=== PATIENT | female | born 1995 | race Caucasian/White ===

== ENCOUNTER 2018-06-30 08:30 | Inpatient (IN) | payer SELFPAY ==
[2018-06-30] MEDS ORDERED: NACL 0.9% 1000 ML 1,000 ML IV ONE (08:52)
[2018-06-30] MEDS ORDERED: MORPHINE IV ONE ×2 (08:52→12:13)
[2018-06-30] MEDS ORDERED: PEPCID IV ONE (08:52)
[2018-06-30] MEDS ORDERED: ZOFRAN IV ONE (08:52)
[2018-06-30] MEDS ORDERED: TORADOL IV ONE (08:52)
[2018-06-30 09:13] LABS: Basophils % (Auto) 0.4 % (0.0-1.8); Eosinophils # (Auto) 0.3 K/mm3 (0.0-0.4); Eosinophils % (Auto) 2.4 % (0.0-4.3); Hematocrit 34.3 % (30.3-42.9); Hemoglobin 11.7 gm/dl (10.1-14.3); Lymphocytes % (Auto) 19.5 % (13.4-35.0); Mean Corpuscular HGB Conc 34 % (30-34); Mean Corpuscular Volume 95 fl (79-97); Monocytes # (Auto) 0.9 K/mm3 (0.0-0.8); Monocytes % (Auto) 8.4 % (0.0-7.3); Platelet Count 416 K/mm3 (140-440); Red Blood Count 3.61 M/mm3 (3.65-5.03); Red Cell Distribution Width 13.3 % (13.2-15.2)
--- NOTE | 2018-06-30 09:26 | Emergency Department Report ---
ED Abdominal Pain HPI - General Chief Complaint: Abdominal Pain Stated Complaint: RT SIDE PAIN/VOMITING/FEVER Time Seen by Provider: 06/30/18 08:50 Source: patient Mode of arrival: Ambulatory Limitations: No Limitations - History of Present Illness MD Complaint: abdominal pain -: Gradual, days(s) (5) Location: RLQ Radiation: suprapubic Migration to: no migration Severity: severe Severity scale (0 -10): 8 Quality: stabbing, aching Consistency: constant Improves With: nothing Worsens With: nothing Associated Symptoms: nausea, vomiting, fever (subjective), chills, constipation, dysuria, anorexia. denies: diarrhea, hematemesis, hematochezia, melena, hematuria, syncope - Related Data Home Medications Medication Instructions Recorded Confirmed Last Taken EPINEPHrine 03/17/16 Unknown Allergies Allergy/AdvReac Type Severity Reaction Status Date / Time Fish Containing Products Allergy Anaphylaxis Verified 03/17/16 15:32 multiple Allergy Anaphylaxis Uncoded 03/17/16 15:31 oranges Allergy Anaphylaxis Uncoded 03/17/16 15:32 seafood Allergy Anaphylaxis Uncoded 03/17/16 15:31 ED Review of Systems ROS: Stated complaint: RT SIDE PAIN/VOMITING/FEVER Other details as noted in HPI Comment: All other systems reviewed and negative ED Past Medical Hx - Past Medical History Previous Medical History?: No Additional medical history: allergies - Surgical History Past Surgical History?: No - Social History Smoking Status: Never Smoker Substance Use Type: None - Medications Home Medications: Home Medications Medication Instructions Recorded Confirmed Last Taken Type EPINEPHrine 03/17/16 Unknown History ED Physical Exam - General Limitations: No Limitations General appearance: alert, in no apparent distress - Head Head exam: Present: atraumatic, normocephalic - Eye Eye exam: Present: normal appearance, PERRL, EOMI - ENT ENT exam: Present: mucous membranes moist - Neck Neck exam: Present: normal inspection - Respiratory Respiratory exam: Present: normal lung sounds bilaterally. Absent: respiratory distress, wheezes, rales, rhonchi - Cardiovascular Cardiovascular Exam: Present: regular rate, normal rhythm, normal heart sounds. Absent: systolic murmur, diastolic murmur, rubs, gallop - GI/Abdominal GI/Abdominal exam: Present: soft, tenderness (RLQ and Suprapubic), rebound, normal bowel sounds. Absent: distended, guarding, rigid - Extremities Exam Extremities exam: Present: normal inspection - Back Exam Back exam: Present: normal inspection - Neurological Exam Neurological exam: Present: alert, oriented X3 - Psychiatric Psychiatric exam: Present: normal affect, normal mood - Skin Skin exam: Present: warm, dry, intact, normal color. Absent: rash ED Course Vital Signs 06/30/18 06/30/18 06/30/18 08:35 09:11 09:18 Temperature 98.4 F Pulse Rate 110 H Respiratory 16 18 18 Rate Blood Pressure 115/70 [Left] O2 Sat by Pulse 99 Oximetry 06/30/18 06/30/18 12:32 12:33 Temperature Pulse Rate Respiratory 18 18 Rate Blood Pressure [Left] O2 Sat by Pulse 99 Oximetry - Reevaluation(s) Reevaluation #1: 06/30/18 12:53 Patient was made nothing by mouth at this time given a dose of Zosyn. Patient's pain is slightly improved. Dr. Harris has been consulted to give input from general surgery standpoint. ED Medical Decision Making - Lab Data Result diagrams: 06/30/18 09:07 06/30/18 09:07 Lab Results 06/30/18 06/30/18 06/30/18 Range/Units 09:07 09:07 09:07 WBC 10.5 (4.5-11.0) K/mm3 RBC 3.61 L (3.65-5.03) M/mm3 Hgb 11.7 (10.1-14.3) gm/dl Hct 34.3 (30.3-42.9) % MCV 95 (79-97) fl MCH 33 H (28-32) pg MCHC 34 (30-34) % RDW 13.3 (13.2-15.2) % Plt Count 416 (140-440) K/mm3 Lymph % (Auto) 19.5 (13.4-35.0) % [place] % (Auto) 8.4 H (0.0-7.3) % Eos % (Auto) 2.4 (0.0-4.3) % Baso % (Auto) 0.4 (0.0-1.8) % Lymph # 2.0 (1.2-5.4) K/mm3 [place] # 0.9 H (0.0-0.8) K/mm3 Eos # 0.3 (0.0-0.4) K/mm3 Baso # 0.0 (0.0-0.1) K/mm3 Seg Neutrophils % 69.3 (40.0-70.0) % Seg Neutrophils # 7.3 (1.8-7.7) K/mm3 Sodium 140 (137-145) mmol/L Potassium 3.7 (3.6-5.0) mmol/L Chloride 102.0 (98-107) mmol/L Carbon Dioxide 24 (22-30) mmol/L Anion Gap 18 mmol/L BUN 6 L (7-17) mg/dL Creatinine 0.6 L (0.7-1.2) mg/dL Estimated GFR > 60 ml/min BUN/Creatinine Ratio 10 % Glucose 84 (65-100) mg/dL Calcium 9.0 (8.4-10.2) mg/dL Total Bilirubin 0.30 (0.1-1.2) mg/dL AST 16 (5-40) units/L ALT 9 (7-56) units/L Alkaline Phosphatase 41 (35-129) units/L Total Protein 8.1 (6.3-8.2) g/dL Albumin 4.1 (3.9-5) g/dL Albumin/Globulin Ratio 1.0 % HCG, Qual Negative (Negative) Urine Color (Yellow) Urine Turbidity (Clear) Urine pH (5.0-7.0) Ur Specific [place] (1.003-1.030) Urine Protein (Negative) mg/dL Urine Glucose (UA) (Negative) mg/dL Urine Ketones (Negative) mg/dL Urine Blood (Negative) Urine Nitrite (Negative) Urine Bilirubin (Negative) Urine Urobilinogen (<2.0) mg/dL Ur Leukocyte Esterase (Negative) Urine WBC (Auto) (0.0-6.0) /HPF Urine RBC (Auto) (0.0-6.0) /HPF U Epithel Cells (Auto) (0-13.0) /HPF Urine Bacteria (Auto) (Negative) /HPF Urine Mucus /HPF 06/30/18 Range/Units Unknown WBC (4.5-11.0) K/mm3 RBC (3.65-5.03) M/mm3 Hgb (10.1-14.3) gm/dl Hct (30.3-42.9) % MCV (79-97) fl MCH (28-32) pg MCHC (30-34) % RDW (13.2-15.2) % Plt Count (140-440) K/mm3 Lymph % (Auto) (13.4-35.0) % [place] % (Auto) (0.0-7.3) % Eos % (Auto) (0.0-4.3) % Baso % (Auto) (0.0-1.8) % Lymph # (1.2-5.4) K/mm3 [place] # (0.0-0.8) K/mm3 Eos # (0.0-0.4) K/mm3 Baso # (0.0-0.1) K/mm3 Seg Neutrophils % (40.0-70.0) % Seg Neutrophils # (1.8-7.7) K/mm3 Sodium (137-145) mmol/L Potassium (3.6-5.0) mmol/L Chloride (98-107) mmol/L Carbon Dioxide (22-30) mmol/L Anion Gap mmol/L BUN (7-17) mg/dL Creatinine (0.7-1.2) mg/dL Estimated GFR ml/min BUN/Creatinine Ratio % Glucose (65-100) mg/dL Calcium (8.4-10.2) mg/dL Total Bilirubin (0.1-1.2) mg/dL AST (5-40) units/L ALT (7-56) units/L Alkaline Phosphatase (35-129) units/L Total Protein (6.3-8.2) g/dL Albumin (3.9-5) g/dL Albumin/Globulin Ratio % HCG, Qual (Negative) Urine Color Yellow (Yellow) Urine Turbidity Cloudy (Clear) Urine pH 5.0 (5.0-7.0) Ur Specific [place] 1.029 (1.003-1.030) Urine Protein <15 mg/dl (Negative) mg/dL Urine Glucose (UA) Neg (Negative) mg/dL Urine Ketones 20 (Negative) mg/dL Urine Blood Neg (Negative) Urine Nitrite Neg (Negative) Urine Bilirubin Neg (Negative) Urine Urobilinogen 4.0 (<2.0) mg/dL Ur Leukocyte Esterase Tr (Negative) Urine WBC (Auto) 5.0 (0.0-6.0) /HPF Urine RBC (Auto) 6.0 (0.0-6.0) /HPF U Epithel Cells (Auto) 25.0 H (0-13.0) /HPF Urine Bacteria (Auto) 1+ (Negative) /HPF Urine Mucus 2+ /HPF - Radiology Data [facility] [address] [place] [address] Cat Scan Report Signed Patient: JESSICA BUTLER MR#: [id number] : 1995 Acct:[id number] Age/Sex: 23 / F ADM Date: 06/30/18 Loc: ED Attending Dr: Ordering Physician: RENATO TO MD Date of Service: 06/30/18 Procedure(s): CT abdomen pelvis w con Accession Number(s): [id number] cc: RENATO TO MD PROCEDURE: CT ABDOMEN PELVIS W CON TECHNIQUE: CT of the abdomen and pelvis was performed. IV contrast was administered. No oral contrast was administered. Axial images and coronal and sagittal reformatted images were obtained. HISTORY: RLQ pain with rebound tenderness COMPARISON: None FINDINGS: There is a fluid containing tubular structure in the right lower quadrant/pelvis measuring up to 1.3 cm diameter. There is surrounding infiltration. This is most likely acute appendicitis. There is a large cystic mass or abscess on the left side of the lower abdomen/pelvis measuring 7.5 cm largest diameter. In addition there is a posterior right-sided pelvic cystic mass or fluid collection measuring 4.4 cm. There is a second cystic mass/fluid collection in anterior lower quadrant measuring 2.6 cm. This demonstrates abundant surrounding inflammatory change and is probably an abscess. There is some bladder wall thickening which may be reactive inflammation. There is some thickening of the distal fluid filled bowel loops, likely an ileus. There is no free intraperitoneal air. The visualized liver, spleen, pancreas, adrenal glands and kidneys demonstrate no significant abnormality. There is no abdominal aortic aneurysm. There is no evidence for intestinal obstruction. IMPRESSION: Findings, as described above, are most compatible with ruptured acute appe ndicitis. Multiple pelvic fluid collections are likely abscesses. The largest is left of midline measuring 7.5 cm. Note that the possibility exists that findings could represent hydrosalpinx and tubo- ovarian abscesses although this possibility is less likely. These findings were discussed with Dr. To on 06/30/2018 at 12:12 PM EST. This document is electronically signed by Karen Chavez MD., June 30 2018 12:18:02 PM ET Transcribed By: JEANNETTE Dictated By: KAREN CHAVEZ MD Electronically Authenticated By: KAREN CHAVEZ MD Signed Date/Time: 06/30/18 1220 DD/ 16 TD/TT: 06/30/18 1117 - Medical Decision Making Patient is a 23-year-old Female who is presenting with right lower quadrant rebound tenderness. Patient has acute appendicitis with rupture with abscess formation. Patient does have a large abscess present in is not an immediate surgical candidate at this time. Patient started on Zosyn and was made nothing by mouth. Interventional radiology will be consulted. Patient was admitted to the hospitalist service at this time. Critical Care Time: Yes (30) Critical care attestation.: If time is entered above; I have spent that time in minutes in the direct care of this critically ill patient, excluding procedure time. ED Disposition Clinical Impression: Acute appendicitis Qualifiers: Acute appendicitis type: with localized peritonitis Appendicitis gangrene presence: unspecified whether gangrene present Appendicitis perforation presence: with perforation Appendicitis abscess presence: with abscess Qualified Code(s): K35.33 - Acute appendicitis with perforation and localized peritonitis, with abscess Disposition: DC-09 OP ADMIT IP TO THIS HOSP Is pt being admited?: Yes Does the pt Need Aspirin: No Condition: Stable Time of Disposition: 13:02
[2018-06-30 09:39] LABS: Alanine Aminotransferase 9 units/L (7-56); Albumin 4.1 g/dL (3.9-5); BUN/Creatinine Ratio 10; Blood Urea Nitrogen 6 mg/dL (7-17); Hemolysis Index 5
[2018-06-30 11:23] LABS: Bacteria,Urine 1+ /HPF (Negative); Bilirubin,Urine NEG (Negative); Blood,Urine NEG (Negative); Color,Urine Yellow (Yellow); Mucus,Urine 2+ /HPF; Protein,Urine <15 mg/dL mg/dL (Negative)
--- NOTE | 2018-06-30 12:20 | Cat Scan Report ---
PROCEDURE: CT ABDOMEN PELVIS W CON TECHNIQUE: CT of the abdomen and pelvis was performed. IV contrast was administered. No oral contrast was administered. Axial images and coronal and sagittal reformatted images were obtained. HISTORY: RLQ pain with rebound tenderness COMPARISON: None FINDINGS: There is a fluid containing tubular structure in the right lower quadrant/pelvis measuring up to 1.3 cm diameter. There is surrounding infiltration. This is most likely acute appendicitis. There is a la rge cystic mass or abscess on the left side of the lower abdomen/pelvis measuring 7.5 cm largest diam eter. In addition there is a posterior right-sided pelvic cystic mass or fluid collection measuring 4 .4 cm. There is a second cystic mass/fluid collection in anterior lower quadrant measuring 2.6 cm. Th is demonstrates abundant surrounding inflammatory change and is probably an abscess. There is some bladder wall thickening which may be reactive inflammation. There is some thickening of the distal fluid filled bowel loops, likely an ileus. There is no free intraperitoneal air. The visualized liver, spleen, pancreas, adrenal glands and kidneys demonstrate no significant abnorma lity. There is no abdominal aortic aneurysm. There is no evidence for intestinal obstruction. IMPRESSION: Findings, as described above, are most compatible with ruptured acute appendicitis. Multiple pelvic f luid collections are likely abscesses. The largest is left of midline measuring 7.5 cm. Note that the possibility exists that findings could represent hydrosalpinx and tubo-ovarian abscesses although th is possibility is less likely. These findings were discussed with Dr. To on 06/30/2018 at 12:12 PM EST. This document is electronically signed by Karen Frankel MD., June 30 2018 12:18:02 PM ET
[2018-06-30] MEDS ORDERED: ZOSYN/NS 4.5GM/100ML 4.5 GM/100 ML VIAL IV ONE (12:50)
--- NOTE | 2018-06-30 13:32 | History and Physical Report ---
History of Present Illness Chief complaint: My stomach hurts History of present illness: 23 YO Female with NO PMH presents to ED for evaluation. Pt states that she has experienced abdominal pain over the past 5 days. Pt states that pain is intermittent, but has gotten worse over the past 2 days. Pain is 5-8/10, severe, located in the RLQ with radiation to the umbilicus, pain is now constant. Pt transported to [facility] ED via private vehicle. Pt seen and evaluated in ED and found to have Appendicitis with rupture and Abscess. Pt admitted to surgical floor. Surgery team consulted in ED. IR consulted in ED. Pt initiated on IV antibiotic therapy. Pt denies fever, chills, palpitations, BRBPR, flank pain, hematuria, hematemesis, ingestion of food/water from new or different sources. No prior admissions for review. All listed medication reconciled at time of admission. Past History Past Medical History: No medical history, other (reviewed) Past Surgical History: No surgical history, Other (reviewed) Social history: single. denies: smoking, alcohol abuse, prescription drug abuse Family history: no significant family history (reviewed) Medications and Allergies Allergies Allergy/AdvReac Type Severity Reaction Status Date / Time Fish Containing Products Allergy Anaphylaxis Verified 03/17/16 15:32 multiple Allergy Anaphylaxis Uncoded 03/17/16 15:31 oranges Allergy Anaphylaxis Uncoded 03/17/16 15:32 seafood Allergy Anaphylaxis Uncoded 03/17/16 15:31 Home Medications Medication Instructions Recorded Confirmed Last Taken Type No Known Home Medications [No 06/30/18 06/30/18 Unknown History Reported Home Medications] Review of Systems Constitutional: no weight loss, no weight gain, no fever, no chills Ears, nose, mouth and throat: no ear pain, no ear discharge, no tinnitis, no decreased hearing, no nose pain Breasts: no change in shape, no swelling, no mass Cardiovascular: no chest pain, no orthopnea, no palpitations, no rapid/irregular heart beat, no edema Respiratory: no cough, no cough with sputum, no excessive sputum, no hemoptysis, no shortness of breath Gastrointestinal: abdominal pain, no nausea, no vomiting, no diarrhea, no constipation Genitourinary Female: no dysmenorrhea, no pelvic pain, no flank pain, no menorrhagia, no dysuria, no urinary frequency Rectal: no pain, no incontinence, no bleeding Musculoskeletal: no neck stiffness, no neck pain, no arm numbness/tingling, no low back pain, no shooting leg pain Integumentary: no rash, no pruritis, no redness, no sores, no wounds Neurological: no head injury, no transient paralysis, no weakness, no parathesias, no numbness, no tingling, no seizures, no syncope Psychiatric: no anxiety, no memory loss, no change in sleep habits, no sleep disturbances, no insomnia Endocrine: no cold intolerance, no heat intolerance, no polyphagia, no excessive thirst, no polydipsia, no polyuria Hematologic/Lymphatic: no easy bruising, no easy bleeding, no lymphadenopathy, no lymphedema Allergic/Immunologic: no urticaria, no allergic rhinitis, no wheezing, no persistent infections, no anaphylaxis Exam - Constitutional Vitals: Temp Pulse Resp BP Pulse Ox 98.4 F 65 18 111/79 100 06/30/18 08:35 06/30/18 13:09 06/30/18 13:09 06/30/18 13:09 06/30/18 13:09 General appearance: Present: mild distress - EENT Eyes: Present: PERRL ENT: hearing intact, clear oral mucosa - Neck Neck: Present: supple, normal ROM - Respiratory Respiratory effort: normal Respiratory: bilateral: CTA - Cardiovascular Heart Sounds: Present: S1 & S2. Absent: rub, click - Extremities Extremities: pulses symmetrical, No edema Peripheral Pulses: within normal limits - Abdominal General gastrointestinal: Present: soft, non-tender, non-distended, normal bowel sounds. Absent: hypoactive bowel sounds, absent bowel sounds, hepatomegaly, splenomegaly, mass, hernia Localized gastrointestinal: tender: RLQ Female genitourinary: Present: normal - Integumentary Integumentary: Present: clear, warm, dry - Musculoskeletal Musculoskeletal: gait normal, strength equal bilaterally - Psychiatric Psychiatric: appropriate mood/affect, intact judgment & insight - Neurologic Neurologic: CNII-XII intact, moves all extremities Results - Labs CBC & Chem 7: 06/30/18 09:07 06/30/18 09:07 Labs: Abnormal lab results 06/30/18 06/30/18 06/30/18 Range/Units 09:07 09:07 Unknown RBC 3.61 L (3.65-5.03) M/mm3 MCH 33 H (28-32) pg [place] % (Auto) 8.4 H (0.0-7.3) % [place] # 0.9 H (0.0-0.8) K/mm3 BUN 6 L (7-17) mg/dL Creatinine 0.6 L (0.7-1.2) mg/dL U Epithel Cells (Auto) 25.0 H (0-13.0) /HPF Assessment and Plan - Patient Problems (1) Acute appendicitis Current Visit: Yes Status: Acute Qualifiers: Acute appendicitis type: with localized peritonitis Appendicitis gangrene presence: unspecified whether gangrene present Appendicitis perforation presence: with perforation Appendicitis abscess presence: with abscess Qualified Code(s): K35.33 - Acute appendicitis with perforation and localized peritonitis, with abscess Plan to address problem: CT Abdomen pelvis, IV antibiotic therapy, pain control, surgery consulted in ED.,bowel rest. (2) Perforated appendix Current Visit: Yes Status: Acute Plan to address problem: Surgery consulted, IV antibiotic therapy, IVF resuscitation therapy, bowel rest, serial abdominal exam. (3) Abdominal abscess Current Visit: Yes Status: Acute Plan to address problem: IR consulted as per surgery request, IV antibiotic therapy, cbc, cmp, (4) DVT prophylaxis Current Visit: Yes Status: Acute Plan to address problem: SCD to BLE while in bed, Prophylactic lovenox
[2018-06-30] MEDS ORDERED: TYLENOL PO PRN (13:33)
[2018-06-30] MEDS ORDERED: PROVENTIL IH PRN (13:33)
[2018-06-30] MEDS ORDERED: SODIUM CHLORIDE FLUSH SYRINGE 10 ML IV PRN (13:33)
[2018-06-30] MEDS: FLAGYL 500 MG/100 ML 500 MG/100 ML BAG IV SCH ×2 (14:53→21:39)
[2018-06-30] MEDS: NACL 0.45% 1000 ML 1,000 ML IV SCH (15:43)
[2018-06-30] MEDS: ZOFRAN IV PRN (17:25)
[2018-06-30] MEDS: MORPHINE IV PRN ×2 (17:25→22:46)
--- NOTE | 2018-06-30 20:29 | Progress Note ---
Assessment and Plan Full consult dictated 23 y/o female I wk hx of lower abd pain. N, V & fever. CT - large pelvic abscess. r/o perf appendicits. r/o TOA Pt sitting up in bed watching TV. Looks remarkably comfortable for a pt who possibly has a I wk hx of ruptured appendicits. Does not appear "toxic" Abd - 1+ distention. mild tenderness. no rebound at present. imp - 23 y/o healthy female. large pelvic abscess. ruptured appy vs TOA rec keep NPO. IVF IV antibiotics. IR eval for CT guided drainage of pelvic abscess ID eval. will follow Chief complaint: My stomach hurts History of present illness: 23 YO Female with NO PMH presents to ED for evaluation. Pt states that she has e xperienced abdominal pain over the past 5 days. Pt states that pain is intermittent, but has gotten worse over the past 2 days. Pain is 5-8/10, severe, located in the RLQ with radiation to the umbilicus, pain is now constant. Pt transported to [facility] ED via private vehicle. Pt seen and evaluated in ED and found to have Appendicitis with rupture and Abscess. Pt admitted to surgical floor. Surgery team consulted in ED. IR consulted in ED. Pt initiated on IV antibiotic therapy. Pt denies fever, chills, palpitations, BRBPR, flank pain, hematuria, hematemesis, ingestion of food/water from new or different sources. No prior admissions for review. All listed medication reconciled at time of admission. Past History Past Medical History: No medical history, other (reviewed) Past Surgical History: No surgical history, Other (reviewed) Social history: single. denies: smoking, alcohol abuse, prescription drug abuse Family history: no significant family history (reviewed) Laboratory Tests 06/30/18 06/30/18 06/30/18 08:37 09:07 09:07 WBC 10.5 Hgb 11.7 Hct 34.3 Sodium 140 Potassium 3.7 Chloride 102.0 Carbon Dioxide 24 BUN 6 L Creatinine 0.6 L Urine Turbidity Cloudy Objective Vital Signs - 12hr 06/30/18 06/30/18 06/30/18 08:35 09:11 09:18 Temperature 98.4 F Pulse Rate 110 H Respiratory 16 18 18 Rate Blood Pressure Blood Pressure 115/70 [Left] O2 Sat by Pulse 99 Oximetry 06/30/18 06/30/18 06/30/18 12:32 12:33 13:02 Temperature Pulse Rate Respiratory 18 18 18 Rate Blood Pressure Blood Pressure [Left] O2 Sat by Pulse 99 Oximetry 06/30/18 06/30/18 06/30/18 13:04 13:09 13:15 Temperature Pulse Rate 65 71 Respiratory 18 12 Rate Blood Pressure 112/77 Blood Pressure 111/79 [Left] O2 Sat by Pulse 99 100 100 Oximetry 06/30/18 06/30/18 06/30/18 13:30 13:45 14:00 Temperature Pulse Rate 68 78 Respiratory 19 14 18 Rate Blood Pressure 117/77 115/77 118/84 Blood Pressure [Left] O2 Sat by Pulse 100 99 100 Oximetry 06/30/18 06/30/18 06/30/18 14:15 14:31 14:45 Temperature Pulse Rate 82 82 Respiratory 14 21 13 Rate Blood Pressure 118/82 115/72 106/82 Blood Pressure [Left] O2 Sat by Pulse 100 99 100 Oximetry 06/30/18 06/30/18 06/30/18 15:00 15:15 15:21 Temperature Pulse Rate 68 68 76 Respiratory 12 17 17 Rate Blood Pressure 117/80 118/81 118/81 Blood Pressure [Left] O2 Sat by Pulse 100 100 100 Oximetry 06/30/18 06/30/18 06/30/18 15:30 15:41 15:51 Temperature Pulse Rate 68 66 66 Respiratory 14 14 14 Rate Blood Pressure 117/81 117/81 Blood Pressure [Left] O2 Sat by Pulse 100 100 100 Oximetry 06/30/18 06/30/18 06/30/18 16:00 16:11 17:24 Temperature 97.9 F Pulse Rate 66 68 71 Respiratory 10 L 16 18 Rate Blood Pressure 111/67 111/67 120/87 Blood Pressure [Left] O2 Sat by Pulse 100 100 100 Oximetry 06/30/18 06/30/18 06/30/18 17:25 17:55 19:29 Temperature 98.0 F Pulse Rate 63 91 H Respiratory 20 16 18 Rate Blood Pressure 108/69 Blood Pressure [Left] O2 Sat by Pulse 100 100 Oximetry - Labs 06/30/18 09:07 06/30/18 09:07 Diabetes panel 06/30/18 Range/Units 09:07 Sodium 140 (137-145) mmol/L Potassium 3.7 (3.6-5.0) mmol/L Chloride 102.0 (98-107) mmol/L Carbon Dioxide 24 (22-30) mmol/L BUN 6 L (7-17) mg/dL Creatinine 0.6 L (0.7-1.2) mg/dL Glucose 84 (65-100) mg/dL Calcium 9.0 (8.4-10.2) mg/dL AST 16 (5-40) units/L ALT 9 (7-56) units/L Alkaline Phosphatase 41 (35-129) units/L Total Protein 8.1 (6.3-8.2) g/dL Albumin 4.1 (3.9-5) g/dL Calcium panel 06/30/18 Range/Units 09:07 Calcium 9.0 (8.4-10.2) mg/dL Albumin 4.1 (3.9-5) g/dL Pituitary panel 06/30/18 Range/Units 09:07 Sodium 140 (137-145) mmol/L Potassium 3.7 (3.6-5.0) mmol/L Chloride 102.0 (98-107) mmol/L Carbon Dioxide 24 (22-30) mmol/L BUN 6 L (7-17) mg/dL Creatinine 0.6 L (0.7-1.2) mg/dL Glucose 84 (65-100) mg/dL Calcium 9.0 (8.4-10.2) mg/dL Adrenal panel 06/30/18 Range/Units 09:07 Sodium 140 (137-145) mmol/L Potassium 3.7 (3.6-5.0) mmol/L Chloride 102.0 (98-107) mmol/L Carbon Dioxide 24 (22-30) mmol/L BUN 6 L (7-17) mg/dL Creatinine 0.6 L (0.7-1.2) mg/dL Glucose 84 (65-100) mg/dL Calcium 9.0 (8.4-10.2) mg/dL Total Bilirubin 0.30 (0.1-1.2) mg/dL AST 16 (5-40) units/L ALT 9 (7-56) units/L Alkaline Phosphatase 41 (35-129) units/L Total Protein 8.1 (6.3-8.2) g/dL Albumin 4.1 (3.9-5) g/dL
[2018-06-30] MEDS: LOVENOX SUB-Q SCH ×2 (21:47→22:37)
[2018-06-30] MEDS: ZOSYN/NS 4.5GM/100ML 4.5 GM/100 ML VIAL IV SCH (22:32)
[2018-06-30] MEDS: SODIUM CHLORIDE FLUSH SYRINGE 10 ML IV SCH (22:32)
[2018-07-01] MEDS: NACL 0.45% 1000 ML 1,000 ML IV SCH ×3 (01:56→22:41)
--- NOTE | 2018-07-01 02:23 | Consultation ---
REASON FOR CONSULTATION: Rule out perforated appendix with large pelvic abscess. HISTORY OF PRESENT ILLNESS: The patient is a 23-year-old healthy female, who has a 1-week history not complaining of bilateral lower abdominal pain as well as back pain. Also, a 1-week history of nausea and vomiting as well as fever. Also, some constipation. Denies any dysuria or vaginal discharge. The patient apparently was seen in the ER over at [facility] few days prior. She was diagnosed with UTI and discharged on antibiotics, but did not get better. PAST MEDICAL HISTORY: Negative. PAST SURGICAL HISTORY: Negative. ALLERGIES: No known allergies. MEDICATIONS: No medications. FAMILY HISTORY: Negative. SOCIAL HISTORY: Denies any smoking or drinking. REVIEW OF SYSTEMS: Noncontributory. PHYSICAL EXAMINATION: GENERAL: At this time reveals the patient to be awake, alert, and cooperative. The patient appears remarkably comfortable for the patient with a 1-week history of ruptured appendix. She is currently sitting up, watching TV. Does not appear to be " at present. VITAL SIGNS: Show her to be afebrile with a temperature of 98, blood pressure is 108/69, pulse of 63, respirations of 16. ABDOMEN: Examination of the abdomen reveals to be 1+ distended. There is mild lower abdominal tenderness, but no rebound or guarding can be elicited at this time. Bowel sounds are hypoactive. LABORATORY DATA: Lab work at present includes a CBC, which shows a white count of 10.5, H and H is 11.7 and 34.3. Electrolytes are all within normal limits. LFTs are also within normal limits. Urinalysis shows urine turbidity as cloudy. White cells are 5, epithelial cells are 25. Urine bacteria is 1+, mucus is 2+. A CT scan of the abdomen has been performed, which I have reviewed with the radiologist. There is a large pelvic abscess noted, which appears to be multiloculated or possibly multiple pelvic fluid collections, which are likely abscesses. This differential here is that of a ruptured appendicitis versus a possible tubo-ovarian abscess. IMPRESSION: 1. At this time is that of a 23-year-old healthy female with large pelvic abscess. 2. Rule out ruptured appendicitis of 1-week history versus a tubo-ovarian abscess. RECOMMENDATION: At this time would be to keep the patient n.p.o. on IV fluid hydration and IV antibiotic treatment. I will consult Interventional Radiology to see if we can do a CT-guided drainage of the fluid collection. Also, we will consult Infectious Disease. We will follow closely with you. As long as the patient clinically remains stable, then we would continue the IV antibiotics and treatment. If the patient clinically destabilizes, then would have to contemplate surgical exploration. We will follow closely with you. Thank you very much for consultation. JOB# [id number] ALBERTA/SHEREE
[2018-07-01] MEDS: ZOSYN/NS 4.5GM/100ML 4.5 GM/100 ML VIAL IV SCH ×3 (05:10→20:25)
[2018-07-01] MEDS: MORPHINE IV PRN ×3 (05:15→22:41)
[2018-07-01] MEDS: FLAGYL 500 MG/100 ML 500 MG/100 ML BAG IV SCH ×3 (06:26→22:26)
[2018-07-01 07:25] LABS: Basophils % (Auto) 0.3 % (0.0-1.8); Eosinophils # (Auto) 0.4 K/mm3 (0.0-0.4); Eosinophils % (Auto) 4.3 % (0.0-4.3); Hematocrit 28.9 % (30.3-42.9); Mean Corpuscular HGB Conc 35 % (30-34); Mean Corpuscular Volume 95 fl (79-97); Monocytes # (Auto) 0.5 K/mm3 (0.0-0.8); Monocytes % (Auto) 6.1 % (0.0-7.3); Platelet Count 354 K/mm3 (140-440); Red Blood Count 3.05 M/mm3 (3.65-5.03)
[2018-07-01 08:08] LABS: BUN/Creatinine Ratio 7; Blood Urea Nitrogen 5 mg/dL (7-17); Hemolysis Index 11
[2018-07-01] MEDS ORDERED: VERSED IV ONE ×2 (10:19→10:30)
[2018-07-01] MEDS ORDERED: SUBLIMAZE IV ONE ×3 (10:19→11:39)
[2018-07-01] MEDS ORDERED: SUBLIMAZE ONE ×3 (10:30→11:40)
[2018-07-01] MEDS: SODIUM CHLORIDE FLUSH SYRINGE 10 ML IV SCH ×2 (10:33→22:41)
[2018-07-01] MEDS ORDERED: XYLOCAINE 1% 20 mL ONE (11:04)
[2018-07-01] MEDS ORDERED: ZOFRAN ONE (11:17)
[2018-07-01] MEDS ORDERED: ZOFRAN IV ONE (11:36)
--- NOTE | 2018-07-01 12:08 | Consultation ---
History of Present Illness - Reason for Consult Consult date: 07/01/18 Pelvic Abscess Requesting physician: MAYELA MCKEON - History of Present Illness This patient is a 23 year old female with no past medical history, that presents in the ED on 06/30/18 with RLQ abdominal pain with radiation to the umbilicus for the last 5 days, she report pain being constant. Upon further evaluation, patient was found to have appendicitis with rupture and abscess. On admission WBC 10.5, Creatinine 0.6, Temperature 98.4, HR 87, BP 120/68. U/A was negative for a UTI. CT of abdomen and pelvis are comparible with ruptured acute appendicitis, multiple pelvic fluid collections, likely abscess. The largest is left of midline measuring 7.5 cm. Hydrosalpinx and tubo-ovarian abscesses less likely. Review of systems General: no fevers or chills, nightsweats, unintentional weight change, or change in appetite Cutaneous: no rash, pruritus Head: no headaches or injury Eyes: no changes in vision, eye pain, double vision Ears: no ear pain, ear discharge, ringing or hearing loss Nose: no nose bleeding, stuffiness Mouth & throat: no bleeding gums, no horseness, no dental problems, or swollen glands Neck: no pain, node enlargement/lumps, tyroid enlargement or tenderness Respiratory: no cough, wheezing, sputum, hemoptysis, pleuritic chest pain Cardiovascular: no chest pain, leg edema, cyanosis, FRANCOIS, orthopnea Musculoskeletal: no decreased joint motion, bone or joint pain, joint swelling, muscle aches Gastrointestinal: no nausea, vomiting, abdominal tenderness, +PARUL drain Genitourinary/Reproductive: no dysuria, hematuria, incontinence Neurogical: no seizures, no headaches, no weakness, no paresthesias, Psychiatric: stable mood; no excessive anxiety, sadness or moodiness Past History Past Medical History: No medical history, other (reviewed) Past Surgical History: No surgical history, Other (reviewed) Social history: single. denies: smoking, alcohol abuse, prescription drug abuse Family history: no significant family history (reviewed) Medications and Allergies Allergies Allergy/AdvReac Type Severity Reaction Status Date / Time Fish Containing Products Allergy Anaphylaxis Verified 03/17/16 15:32 multiple Allergy Anaphylaxis Uncoded 03/17/16 15:31 oranges Allergy Anaphylaxis Uncoded 03/17/16 15:32 seafood Allergy Anaphylaxis Uncoded 03/17/16 15:31 Home Medications Medication Instructions Recorded Confirmed Last Taken Type No Known Home Medications [No 06/30/18 06/30/18 Unknown History Reported Home Medications] Active Meds: Active Medications Acetaminophen (Tylenol) 650 mg PO Q4H PRN PRN Reason: Pain MILD(1-3)/Fever >100.5/BRANTLEY Albuterol (Proventil) 2.5 mg IH Q4HRT PRN PRN Reason: Shortness Of Breath Enoxaparin Sodium (Lovenox) 40 mg SUB-Q QDAY@2200 KARLO Last Admin: 06/30/18 22:37 Dose: 40 mg Documented by: Sodium Chloride (Nacl 0.45% 1000 Ml) 1,000 mls @ 125 mls/hr IV DIRECT KARLO Last Admin: 07/01/18 01:56 Dose: 125 mls/hr Documented by: Metronidazole (Flagyl 500 Mg/100 Ml) 500 mg in 100 mls @ 100 mls/hr IV Q8HR KARLO; Protocol Last Admin: 07/01/18 06:26 Dose: 100 mls/hr Documented by: Piperacillin Sod/Tazobactam Sod (Zosyn/Ns 4.5gm/100ml) 4.5 gm in 100 mls @ 200 mls/hr IV Q8H KARLO; Protocol Last Admin: 07/01/18 05:10 Dose: 200 mls/hr Documented by: Morphine Sulfate (Morphine) 2 mg IV Q4H PRN PRN Reason: Pain, Moderate (4-6) Last Admin: 07/01/18 05:15 Dose: 2 mg Documented by: Ondansetron HCl (Zofran) 4 mg IV Q8H PRN PRN Reason: Nausea And Vomiting Last Admin: 06/30/18 17:25 Dose: 4 mg Documented by: Sodium Chloride (Sodium Chloride Flush Syringe 10 Ml) 10 ml IV BID KARLO Last Admin: 07/01/18 10:33 Dose: 10 ml Documented by: Sodium Chloride (Sodium Chloride Flush Syringe 10 Ml) 10 ml IV PRN PRN PRN Reason: LINE FLUSH Physical Examination - Physical Exam Narrative exam: Constitutional: Alert, cooperative. No acute distress Head, Ears, Nose: Normocephalic, atraumatic. External ears, nose normal Eyes: Conjunctivae/corneas clear. No icterus. No ptosis. Neck: Supple, no meningeal signs Oral: dentition good, no thrush Cardiovascular: S1, S2 normal. Respiratory: Good air entry, clear to auscultation bilaterally GI: abdominal tenderness, s/p CT guided abscess drainage, +PARUL drain Musculoskeletal: No pedal edema, no cyanosis. Skin: No rash or abscess. Hem/Lymphatic: No palpable cervical or supraclavicular nodes. No lymphangitis Psych: Mood ok. Affect normal Neurological: Awake, alert, oriented. - Constitutional Vitals: Vital Signs Temp Pulse Resp BP Pulse Ox 98.0 F 92 H 17 112/50 100 07/01/18 07:07 07/01/18 11:56 07/01/18 11:56 07/01/18 11:56 07/01/18 11:56 Temperature -Last 24 Hours Temperature 98.0 F Temperature 97.9 F Temperature 98.0 F Temperature 98.0 F Temperature 97.9 F Results - Labs CBC & Chem 7: 07/01/18 07:11 07/01/18 07:11 Labs: Abnormal lab results 06/30/18 07/01/18 07/01/18 Range/Units 08:37 07:11 07:11 RBC 3.05 L (3.65-5.03) M/mm3 Hgb 10.0 L (10.1-14.3) gm/dl Hct 28.9 L (30.3-42.9) % MCH 33 H (28-32) pg MCHC 35 H (30-34) % RDW 13.0 L (13.2-15.2) % Potassium 3.5 L (3.6-5.0) mmol/L Chloride 107.1 H (98-107) mmol/L BUN 5 L (7-17) mg/dL Calcium 8.0 L (8.4-10.2) mg/dL U Epithel Cells (Auto) 25.0 H (0-13.0) /HPF - Imaging and Cardiology CT scan - abdomen: report reviewed ( ruptured acute appendicitis, multiple pelvic fluid collections, likely abscess. The largest is left of midline measuring 7.5 cm. Hydrosalpinx and tubo-ovarian abscesses less likely.) Assessment and Plan I Cultures: A/P: This patient is a 23 year old female with no past medical history, that presents in the ED on 06/30/18 with RLQ abdominal pain with radiation to the umbilicus for the last 5 days, she report pain being constant. Upon further evaluation, patient was found to have appendicitis with rupture and abscess. 1. Ruptured Appendix with multiple fluid collections: CT of abdomen and pelvis show large pelvic abscess measuring 7.5 cm. s/p CT guided drainage of pelvic abscess. Currently being treated with Zosyn. No fevers. no leukocytosis. Plan: - f/u surgical fluid cultures -continue Zosyn Dr. Ron will be patient relations director this weekend, . Please call for questions [facility] M: [phone] O:[phone]
--- NOTE | 2018-07-01 12:25 | Progress Note ---
Assessment and Plan Pt feeling well. currently undergoing CT drainage procedure Abd soft. IR & ID evaluations appreciated clinically stable await cult reports continue NPO except ice chips and meds continue present care Selected Entries 07/01/18 07/01/18 07:07 11:56 Temperature 98.0 F Pulse Rate [ 92 H Intra-Procedure ] Respiratory 17 Rate [Intra- Procedure] Blood Pressure 112/50 [Intra- Procedure] Laboratory Tests 06/30/18 07/01/18 09:07 07:11 WBC 10.5 8.2 Hgb 11.7 10.0 L Hct 34.3 28.9 L Objective Vital Signs - 12hr 07/01/18 07/01/18 07/01/18 03:44 07:07 10:58 Temperature 97.9 F 98.0 F Pulse Rate 64 69 Pulse Rate [ Intra-Procedure ] Pulse Rate [Pre 68 -Procedure] Respiratory 18 18 Rate Respiratory Rate [Intra- Procedure] Respiratory 28 H Rate [Pre- Procedure] Blood Pressure 102/61 Blood Pressure [Intra- Procedure] Blood Pressure 112/71 [Left] Blood Pressure 111/71 [Pre-Procedure] O2 Sat by Pulse 100 100 Oximetry O2 Sat by Pulse Oximetry [ Intra-Procedure ] O2 Sat by Pulse 100 Oximetry [Pre- Procedure] 07/01/18 07/01/18 07/01/18 11:09 11:15 11:20 Temperature Pulse Rate Pulse Rate [ 87 87 91 H Intra-Procedure ] Pulse Rate [Pre -Procedure] Respiratory Rate Respiratory 22 12 23 Rate [Intra- Procedure] Respiratory Rate [Pre- Procedure] Blood Pressure Blood Pressure 120/68 127/66 108/63 [Intra- Procedure] Blood Pressure [Left] Blood Pressure [Pre-Procedure] O2 Sat by Pulse Oximetry O2 Sat by Pulse 100 100 100 Oximetry [ Intra-Procedure ] O2 Sat by Pulse Oximetry [Pre- Procedure] 07/01/18 07/01/18 07/01/18 11:26 11:31 11:41 Temperature Pulse Rate Pulse Rate [ 89 100 H 92 H Intra-Procedure ] Pulse Rate [Pre -Procedure] Respiratory Rate Respiratory 10 L 18 14 Rate [Intra- Procedure] Respiratory Rate [Pre- Procedure] Blood Pressure Blood Pressure 113/56 114/57 103/49 [Intra- Procedure] Blood Pressure [Left] Blood Pressure [Pre-Procedure] O2 Sat by Pulse Oximetry O2 Sat by Pulse 100 100 100 Oximetry [ Intra-Procedure ] O2 Sat by Pulse Oximetry [Pre- Procedure] 07/01/18 07/01/18 07/01/18 11:44 11:45 11:50 Temperature Pulse Rate Pulse Rate [ 105 H 88 Intra-Procedure ] Pulse Rate [Pre -Procedure] Respiratory 20 Rate Respiratory 12 13 Rate [Intra- Procedure] Respiratory Rate [Pre- Procedure] Blood Pressure 122/70 Blood Pressure 107/47 100/65 [Intra- Procedure] Blood Pressure [Left] Blood Pressure [Pre-Procedure] O2 Sat by Pulse Oximetry O2 Sat by Pulse 100 100 Oximetry [ Intra-Procedure ] O2 Sat by Pulse Oximetry [Pre- Procedure] 07/01/18 11:56 Temperature Pulse Rate Pulse Rate [ 92 H Intra-Procedure ] Pulse Rate [Pre -Procedure] Respiratory Rate Respiratory 17 Rate [Intra- Procedure] Respiratory Rate [Pre- Procedure] Blood Pressure Blood Pressure 112/50 [Intra- Procedure] Blood Pressure [Left] Blood Pressure [Pre-Procedure] O2 Sat by Pulse Oximetry O2 Sat by Pulse 100 Oximetry [ Intra-Procedure ] O2 Sat by Pulse Oximetry [Pre- Procedure] - Labs 07/01/18 07:11 07/01/18 07:11 Diabetes panel 07/01/18 Range/Units 07:11 Sodium 139 (137-145) mmol/L Potassium 3.5 L (3.6-5.0) mmol/L Chloride 107.1 H (98-107) mmol/L Carbon Dioxide 22 (22-30) mmol/L BUN 5 L (7-17) mg/dL Creatinine 0.7 (0.7-1.2) mg/dL Glucose 79 (65-100) mg/dL Calcium 8.0 L (8.4-10.2) mg/dL Calcium panel 07/01/18 Range/Units 07:11 Calcium 8.0 L (8.4-10.2) mg/dL Pituitary panel 07/01/18 Range/Units 07:11 Sodium 139 (137-145) mmol/L Potassium 3.5 L (3.6-5.0) mmol/L Chloride 107.1 H (98-107) mmol/L Carbon Dioxide 22 (22-30) mmol/L BUN 5 L (7-17) mg/dL Creatinine 0.7 (0.7-1.2) mg/dL Glucose 79 (65-100) mg/dL Calcium 8.0 L (8.4-10.2) mg/dL Adrenal panel 07/01/18 Range/Units 07:11 Sodium 139 (137-145) mmol/L Potassium 3.5 L (3.6-5.0) mmol/L Chloride 107.1 H (98-107) mmol/L Carbon Dioxide 22 (22-30) mmol/L BUN 5 L (7-17) mg/dL Creatinine 0.7 (0.7-1.2) mg/dL Glucose 79 (65-100) mg/dL Calcium 8.0 L (8.4-10.2) mg/dL
--- NOTE | 2018-07-01 13:26 | Post Operative Note ---
Date of procedure: 07/01/18 Pre-op diagnosis: Ruptured appendix with multiple fluid collections Post-op diagnosis: same Findings: 3 fluid collections present Left midline collection, largest - drained with old blood removed (200 mL) and sent for culture Right adnexal collection - unable to approach percutaneously Right lower quadrant collection continuous with the appendix - very small, mostly phlegmon, aspirated and sent for culture Procedure: CT guided drainage of the left midline fluid collection - 200 mL old blood removed CT guided aspiration of the right lower quadrant collection - a few mL of purulent material removed Anesthesia: local (w/ conscious sedation) Surgeon: JEREMIAS RICKS Estimated blood loss: minimal Condition: stable Disposition: floor
[2018-07-01] MEDS: ZOFRAN IV PRN (18:44)
--- NOTE | 2018-07-01 20:39 | Progress Note ---
Assessment and Plan Assessment and plan: --Perforated Appendix ; fluid collection/abscess Surgery evaluated continue IV antibiotics and IV fluids nothing by mouth IR evaluated s/p CT-guided drainage, removal of 200 mL[left midline fluid collection] This CT-guided aspiration of right lower quadrant collection, scanty purulent material removed --Sepsis; secondary to ruptured viscus; Continue IV fluids, IV antibiotics, follow cultures, supportive care --Acute appendicitis; surgery following --DVT prophylaxis; SCD, Lovenox. Consults and recommendations noted and appreciated Plan of care reviewed with the patient and her nurse History Interval history: Patient seen and examined medical records reviewed Patient complaints of some pain in the abdomen Afebrile, alert awake oriented ,mild distress Vital signs reviewed Hospitalist Physical - Constitutional Vitals: Temp Pulse Resp BP Pulse Ox 97.9 F 75 17 132/89 100 07/01/18 19:54 07/01/18 19:54 07/01/18 19:54 07/01/18 19:54 07/01/18 19:54 General appearance: Present: mild distress, well-nourished - EENT Eyes: Present: PERRL, EOM intact - Neck Neck: Present: supple, normal ROM - Respiratory Respiratory effort: normal Respiratory: bilateral: diminished, negative: rales, rhonchi, wheezing - Cardiovascular Rhythm: regular Heart Sounds: Present: S1 & S2 - Extremities Extremities: no ischemia, No edema - Abdominal General gastrointestinal: soft, tender, non-distended, hypoactive bowel sounds, other (drain is in place ) - Integumentary Integumentary: Present: clear, warm - Psychiatric Psychiatric: appropriate mood/affect, cooperative - Neurologic Neurologic: moves all extremities Results - Labs CBC & Chem 7: 07/02/18 04:07 07/02/18 04:07 Labs: Laboratory Last Values WBC 8.2 K/mm3 (4.5-11.0) 07/01/18 07:11 RBC 3.05 M/mm3 (3.65-5.03) L 07/01/18 07:11 Hgb 10.0 gm/dl (10.1-14.3) L 07/01/18 07:11 Hct 28.9 % (30.3-42.9) L 07/01/18 07:11 MCV 95 fl (79-97) 07/01/18 07:11 MCH 33 pg (28-32) H 07/01/18 07:11 MCHC 35 % (30-34) H 07/01/18 07:11 RDW 13.0 % (13.2-15.2) L 07/01/18 07:11 Plt Count 354 K/mm3 (140-440) 07/01/18 07:11 Lymph % (Auto) 24.0 % (13.4-35.0) 07/01/18 07:11 [place] % (Auto) 6.1 % (0.0-7.3) 07/01/18 07:11 Eos % (Auto) 4.3 % (0.0-4.3) 07/01/18 07:11 Baso % (Auto) 0.3 % (0.0-1.8) 07/01/18 07:11 Lymph # 2.0 K/mm3 (1.2-5.4) 07/01/18 07:11 [place] # 0.5 K/mm3 (0.0-0.8) 07/01/18 07:11 Eos # 0.4 K/mm3 (0.0-0.4) 07/01/18 07:11 Baso # 0.0 K/mm3 (0.0-0.1) 07/01/18 07:11 Seg Neutrophils % 65.3 % (40.0-70.0) 07/01/18 07:11 Seg Neutrophils # 5.3 K/mm3 (1.8-7.7) 07/01/18 07:11 Sodium 139 mmol/L (137-145) 07/01/18 07:11 Potassium 3.5 mmol/L (3.6-5.0) L 07/01/18 07:11 Chloride 107.1 mmol/L (98-107) H 07/01/18 07:11 Carbon Dioxide 22 mmol/L (22-30) 07/01/18 07:11 Anion Gap 13 mmol/L 07/01/18 07:11 BUN 5 mg/dL (7-17) L 07/01/18 07:11 Creatinine 0.7 mg/dL (0.7-1.2) 07/01/18 07:11 Estimated GFR > 60 ml/min 07/01/18 07:11 BUN/Creatinine Ratio 7 % 07/01/18 07:11 Glucose 79 mg/dL (65-100) 07/01/18 07:11 Calcium 8.0 mg/dL (8.4-10.2) L 07/01/18 07:11 Total Bilirubin 0.30 mg/dL (0.1-1.2) 06/30/18 09:07 AST 16 units/L (5-40) 06/30/18 09:07 ALT 9 units/L (7-56) 06/30/18 09:07 Alkaline Phosphatase 41 units/L (35-129) 06/30/18 09:07 Total Protein 8.1 g/dL (6.3-8.2) 06/30/18 09:07 Albumin 4.1 g/dL (3.9-5) 06/30/18 09:07 Albumin/Globulin Ratio 1.0 % 06/30/18 09:07 HCG, Qual Negative (Negative) 06/30/18 09:07 Urine Color Yellow (Yellow) 06/30/18 08:37 Urine Turbidity Cloudy (Clear) 06/30/18 08:37 Urine pH 5.0 (5.0-7.0) 06/30/18 08:37 Ur Specific [place] 1.029 (1.003-1.030) 06/30/18 08:37 Urine Protein <15 mg/dl mg/dL (Negative) 06/30/18 08:37 Urine Glucose (UA) Neg mg/dL (Negative) 06/30/18 08:37 Urine Ketones 20 mg/dL (Negative) 06/30/18 08:37 Urine Blood Neg (Negative) 06/30/18 08:37 Urine Nitrite Neg (Negative) 06/30/18 08:37 Urine Bilirubin Neg (Negative) 06/30/18 08:37 Urine Urobilinogen 4.0 mg/dL (<2.0) 06/30/18 08:37 Ur Leukocyte Esterase Tr (Negative) 06/30/18 08:37 Urine WBC (Auto) 5.0 /HPF (0.0-6.0) 06/30/18 08:37 Urine RBC (Auto) 6.0 /HPF (0.0-6.0) 06/30/18 08:37 U Epithel Cells (Auto) 25.0 /HPF (0-13.0) H 06/30/18 08:37 Urine Bacteria (Auto) 1+ /HPF (Negative) 06/30/18 08:37 Urine Mucus 2+ /HPF 06/30/18 08:37 Active Medications - Current Medications Current Medications: Generic Name Dose Route Start Last Admin Trade Name Freq PRN Reason Stop Dose Admin Acetaminophen 650 mg 06/30/18 13:33 Tylenol PO Q4H PRN Pain MILD(1-3)/Fever >100.5/BRANTLEY Albuterol 2.5 mg 06/30/18 13:33 Proventil IH Q4HRT PRN Shortness Of Breath Enoxaparin Sodium 40 mg 06/30/18 22:00 06/30/18 22:37 Lovenox SUB-Q 40 mg QDAY@2200 KARLO Administration Sodium Chloride 1,000 mls @ 125 mls/hr 06/30/18 14:00 07/01/18 13:05 Nacl 0.45% 1000 Ml IV 125 mls/hr DIRECT KARLO Administration Metronidazole 500 mg in 100 mls @ 100 mls/hr 06/30/18 14:00 07/01/18 13:03 Flagyl 500 Mg/100 Ml IV 100 mls/hr Q8HR KARLO Administration Protocol Piperacillin Sod/Tazobactam Sod 4.5 gm in 100 mls @ 200 mls/hr 06/30/18 20:00 07/01/18 20:25 Zosyn/Ns 4.5gm/100ml IV 200 mls/hr Q8H KARLO Administration Protocol Morphine Sulfate 2 mg 06/30/18 13:33 07/01/18 18:45 Morphine IV 2 mg Q4H PRN Administration Pain, Moderate (4-6) Ondansetron HCl 4 mg 06/30/18 13:33 07/01/18 18:44 Zofran IV 4 mg Q8H PRN Administration Nausea And Vomiting Sodium Chloride 10 ml 06/30/18 22:00 07/01/18 10:33 Sodium Chloride Flush Syringe 10 Ml IV 10 ml BID KARLO Administration Sodium Chloride 10 ml 06/30/18 13:33 Sodium Chloride Flush Syringe 10 Ml IV PRN PRN LINE FLUSH
[2018-07-01] MEDS: LOVENOX SUB-Q SCH (22:42)
[2018-07-02 04:22] LABS: Basophils % (Auto) 0.3 % (0.0-1.8); Eosinophils # (Auto) 0.3 K/mm3 (0.0-0.4); Eosinophils % (Auto) 3.2 % (0.0-4.3); Hematocrit 30.1 % (30.3-42.9); Hemoglobin 10.5 gm/dl (10.1-14.3); Lymphocytes # (Auto) 1.8 K/mm3 (1.2-5.4); Lymphocytes % (Auto) 22.6 % (13.4-35.0); Mean Corpuscular HGB Conc 35 % (30-34); Mean Corpuscular Volume 94 fl (79-97); Monocytes # (Auto) 0.4 K/mm3 (0.0-0.8); Monocytes % (Auto) 5.5 % (0.0-7.3); Platelet Count 466 K/mm3 (140-440); Red Blood Count 3.22 M/mm3 (3.65-5.03); Red Cell Distribution Width 12.6 % (13.2-15.2)
[2018-07-02 04:46] LABS: Alanine Aminotransferase 8 units/L (7-56); Albumin 3.1 g/dL (3.9-5); BUN/Creatinine Ratio 6; Blood Urea Nitrogen 4 mg/dL (7-17); Calcium 8.5 mg/dL (8.4-10.2); Hemolysis Index 3
[2018-07-02] MEDS: MORPHINE IV PRN (05:30)
[2018-07-02] MEDS: FLAGYL 500 MG/100 ML 500 MG/100 ML BAG IV SCH ×3 (05:31→22:28)
[2018-07-02] MEDS: ZOFRAN IV PRN (06:47)
[2018-07-02] MEDS: ZOSYN/NS 4.5GM/100ML 4.5 GM/100 ML VIAL IV SCH ×3 (06:47→22:29)
[2018-07-02] MEDS: NACL 0.45% 1000 ML 1,000 ML IV SCH ×2 (09:34→22:30)
[2018-07-02] MEDS: SODIUM CHLORIDE FLUSH SYRINGE 10 ML IV SCH ×2 (09:35→22:36)
[2018-07-02] MEDS ORDERED: MAGNESIUM SULFATE 2GM/50ML 2 GM/50 ML BAG IV ONE (14:05)
[2018-07-02] MEDS ORDERED: REGLAN IV PRN (17:07)
--- NOTE | 2018-07-02 18:49 | Progress Note ---
Assessment and Plan Assessment and plan: --Sepsis; secondary to ruptured viscus; Continue IV fluids, IV antibiotics, follow cultures, ID Following supportive care --Perforated Appendix ; fluid collection/abscess Surgery evaluated continue IV antibiotics and IV fluids nothing by mouth IR evaluated s/p CT-guided drainage, removal of 200 mL[left midline fluid collection] This CT-guided aspiration of right lower quadrant collection, scanty purulent material removed --Acute appendicitis; surgery following --DVT prophylaxis; SCD, Lovenox. Consults and recommendations noted and appreciated Plan of care reviewed with the patient and her nurse History Interval history: Patient seen and examined medical records reviewed No new events reported by nursing staff Patient feels hungry and wants some food Alert awake oriented 3. Not in acute distress Vital signs reviewed Complaints of mild nausea Hospitalist Physical - Constitutional Vitals: Temp Pulse Resp BP Pulse Ox 98 F 77 18 109/72 97 07/02/18 16:00 07/02/18 16:00 07/02/18 16:00 07/02/18 16:00 07/02/18 16:00 General appearance: Present: no acute distress, cachectic - EENT Eyes: Present: PERRL, EOM intact - Neck Neck: Present: supple, normal ROM - Respiratory Respiratory effort: normal Respiratory: negative: rales, rhonchi, wheezing - Cardiovascular Rhythm: regular Heart Sounds: Present: S1 & S2 - Extremities Extremities: no ischemia, No edema - Abdominal General gastrointestinal: soft, tender, non-distended, hypoactive bowel sounds - Integumentary Integumentary: Present: clear, warm - Psychiatric Psychiatric: appropriate mood/affect, cooperative - Neurologic Neurologic: moves all extremities Results - Labs CBC & Chem 7: 07/02/18 04:07 07/02/18 04:07 Labs: Laboratory Last Values WBC 8.1 K/mm3 (4.5-11.0) 07/02/18 04:07 RBC 3.22 M/mm3 (3.65-5.03) L 07/02/18 04:07 Hgb 10.5 gm/dl (10.1-14.3) 07/02/18 04:07 Hct 30.1 % (30.3-42.9) L 07/02/18 04:07 MCV 94 fl (79-97) 07/02/18 04:07 MCH 33 pg (28-32) H 07/02/18 04:07 MCHC 35 % (30-34) H 07/02/18 04:07 RDW 12.6 % (13.2-15.2) L 07/02/18 04:07 Plt Count 466 K/mm3 (140-440) H 07/02/18 04:07 Lymph % (Auto) 22.6 % (13.4-35.0) 07/02/18 04:07 [place] % (Auto) 5.5 % (0.0-7.3) 07/02/18 04:07 Eos % (Auto) 3.2 % (0.0-4.3) 07/02/18 04:07 Baso % (Auto) 0.3 % (0.0-1.8) 07/02/18 04:07 Lymph # 1.8 K/mm3 (1.2-5.4) 07/02/18 04:07 [place] # 0.4 K/mm3 (0.0-0.8) 07/02/18 04:07 Eos # 0.3 K/mm3 (0.0-0.4) 07/02/18 04:07 Baso # 0.0 K/mm3 (0.0-0.1) 07/02/18 04:07 Seg Neutrophils % 68.4 % (40.0-70.0) 07/02/18 04:07 Seg Neutrophils # 5.6 K/mm3 (1.8-7.7) 07/02/18 04:07 Sodium 136 mmol/L (137-145) L 07/02/18 04:07 Potassium 3.6 mmol/L (3.6-5.0) 07/02/18 04:07 Chloride 101.5 mmol/L (98-107) 07/02/18 04:07 Carbon Dioxide 20 mmol/L (22-30) L 07/02/18 04:07 Anion Gap 18 mmol/L 07/02/18 04:07 BUN 4 mg/dL (7-17) L 07/02/18 04:07 Creatinine 0.7 mg/dL (0.7-1.2) 07/02/18 04:07 Estimated GFR > 60 ml/min 07/02/18 04:07 BUN/Creatinine Ratio 6 % 07/02/18 04:07 Glucose 68 mg/dL (65-100) 07/02/18 04:07 Calcium 8.5 mg/dL (8.4-10.2) 07/02/18 04:07 Phosphorus 2.90 mg/dL (2.5-4.5) 07/02/18 04:07 Magnesium 1.50 mg/dL (1.7-2.3) L 07/02/18 04:07 Total Bilirubin 0.40 mg/dL (0.1-1.2) 07/02/18 04:07 AST 18 units/L (5-40) 07/02/18 04:07 ALT 8 units/L (7-56) 07/02/18 04:07 Alkaline Phosphatase 37 units/L (35-129) 07/02/18 04:07 Total Protein 6.6 g/dL (6.3-8.2) 07/02/18 04:07 Albumin 3.1 g/dL (3.9-5) L 07/02/18 04:07 Albumin/Globulin Ratio 0.9 % 07/02/18 04:07 HCG, Qual Negative (Negative) 06/30/18 09:07 Urine Color Yellow (Yellow) 06/30/18 08:37 Urine Turbidity Cloudy (Clear) 06/30/18 08:37 Urine pH 5.0 (5.0-7.0) 06/30/18 08:37 Ur Specific [place] 1.029 (1.003-1.030) 06/30/18 08:37 Urine Protein <15 mg/dl mg/dL (Negative) 06/30/18 08:37 Urine Glucose (UA) Neg mg/dL (Negative) 06/30/18 08:37 Urine Ketones 20 mg/dL (Negative) 06/30/18 08:37 Urine Blood Neg (Negative) 06/30/18 08:37 Urine Nitrite Neg (Negative) 06/30/18 08:37 Urine Bilirubin Neg (Negative) 06/30/18 08:37 Urine Urobilinogen 4.0 mg/dL (<2.0) 06/30/18 08:37 Ur Leukocyte Esterase Tr (Negative) 06/30/18 08:37 Urine WBC (Auto) 5.0 /HPF (0.0-6.0) 06/30/18 08:37 Urine RBC (Auto) 6.0 /HPF (0.0-6.0) 06/30/18 08:37 U Epithel Cells (Auto) 25.0 /HPF (0-13.0) H 06/30/18 08:37 Urine Bacteria (Auto) 1+ /HPF (Negative) 06/30/18 08:37 Urine Mucus 2+ /HPF 06/30/18 08:37 Active Medications - Current Medications Current Medications: Generic Name Dose Route Start Last Admin Trade Name Freq PRN Reason Stop Dose Admin Acetaminophen 650 mg 06/30/18 13:33 Tylenol PO Q4H PRN Pain MILD(1-3)/Fever >100.5/BRANTLEY Albuterol 2.5 mg 06/30/18 13:33 Proventil IH Q4HRT PRN Shortness Of Breath Enoxaparin Sodium 40 mg 06/30/18 22:00 07/01/18 22:42 Lovenox SUB-Q 40 mg QDAY@2200 KARLO Administration Sodium Chloride 1,000 mls @ 125 mls/hr 06/30/18 14:00 07/02/18 09:34 Nacl 0.45% 1000 Ml IV 125 mls/hr DIRECT KARLO Administration Metronidazole 500 mg in 100 mls @ 100 mls/hr 06/30/18 14:00 07/02/18 14:19 Flagyl 500 Mg/100 Ml IV 100 mls/hr Q8HR KARLO Administration Protocol Piperacillin Sod/Tazobactam Sod 4.5 gm in 100 mls @ 200 mls/hr 06/30/18 20:00 07/02/18 11:59 Zosyn/Ns 4.5gm/100ml IV 200 mls/hr Q8H KARLO Administration Protocol Metoclopramide HCl 5 mg 07/02/18 17:07 Reglan IV Q8H PRN Nausea And Vomiting Morphine Sulfate 2 mg 06/30/18 13:33 07/02/18 05:30 Morphine IV 2 mg Q4H PRN Administration Pain, Moderate (4-6) Ondansetron HCl 4 mg 06/30/18 13:33 07/02/18 06:47 Zofran IV 4 mg Q8H PRN Administration Nausea And Vomiting Sodium Chloride 10 ml 06/30/18 22:00 07/02/18 09:35 Sodium Chloride Flush Syringe 10 Ml IV 10 ml BID KARLO Administration Sodium Chloride 10 ml 06/30/18 13:33 Sodium Chloride Flush Syringe 10 Ml IV PRN PRN LINE FLUSH
[2018-07-02] MEDS: LOVENOX SUB-Q SCH (22:31)
[2018-07-03] MEDS: ZOSYN/NS 4.5GM/100ML 4.5 GM/100 ML VIAL IV SCH ×3 (05:39→19:55)
[2018-07-03] MEDS: FLAGYL 500 MG/100 ML 500 MG/100 ML BAG IV SCH ×3 (06:22→22:24)
--- NOTE | 2018-07-03 09:29 | Progress Note ---
Assessment and Plan Cultures: 07/01/2018 Surgical cultures: GNR A/P: This patient is a 23 year old female with no past medical history, that presents in the ED on 06/30/18 with RLQ abdominal pain with radiation to the umbilicus for the last 5 days, she report pain being constant. Upon further evaluation, patient was found to have appendicitis with rupture and abscess. 1. Suspected ruptured appendix with multiple fluid collections: CT of abdomen and pelvis show large pelvic abscess measuring 7.5 cm. s/p CT guided drainage of pelvic abscess. Surgical cultures grew Gram Negative Rods. Will f/u ID and OSMANY's. Currently being treated with Zosyn. No fevers. no leukocytosis. Plan: - f/u surgical fluid cultures for ID and OSMANY's -continue Zosyn [facility] M: [id number] O:[phone] Subjective Date of service: 07/03/18 Interval history: Patient seen and examined. Stated that she was feeling better today but having continuing nausea, no vomiting. Objective - Exam Narrative Exam: Constitutional: Alert, cooperative. No acute distress Head, Ears, Nose: Normocephalic, atraumatic. External ears, nose normal Eyes: Conjunctivae/corneas clear. No icterus. No ptosis. Neck: Supple, no meningeal signs Oral: dentition good, no thrush Cardiovascular: S1, S2 normal. Respiratory: Good air entry, clear to auscultation bilaterally GI: abdominal tenderness, s/p CT guided abscess drainage, +PARUL drain - minimal drainage Musculoskeletal: No pedal edema, no cyanosis. Skin: No rash or abscess. Hem/Lymphatic: No palpable cervical or supraclavicular nodes. No lymphangitis Psych: Mood ok. Affect normal Neurological: Awake, alert, oriented. - Constitutional Vitals: Vital Signs Temp Pulse Resp BP Pulse Ox 98.0 F 77 18 101/68 99 07/03/18 08:28 07/03/18 08:28 07/03/18 08:28 07/03/18 08:28 07/03/18 09:02 Temperature -Last 24 Hours Temperature 98.0 F Temperature 98.5 F Temperature 98.3 F Temperature 98 F - Labs CBC & Chem 7: 07/02/18 04:07 07/02/18 04:07
[2018-07-03] MEDS: SODIUM CHLORIDE FLUSH SYRINGE 10 ML IV SCH ×2 (10:53→22:24)
[2018-07-03] MEDS: PHENERGAN PO PRN (13:36)
--- NOTE | 2018-07-03 14:00 | Progress Note ---
Assessment and Plan Pt feeling well without compl. + BM's abd soft, non tender stable - clinically improving attempt cl liq diet no carbonated Selected Entries 07/03/18 12:09 Temperature 98.0 F Respiratory 18 Rate O2 Sat by Pulse 83 L Oximetry Blood Pressure 116/78 Laboratory Tests 07/02/18 07/02/18 04:07 04:07 WBC 8.1 Hgb 10.5 Hct 30.1 L Sodium 136 L Potassium 3.6 Chloride 101.5 Carbon Dioxide 20 L BUN 4 L Creatinine 0.7 Objective Vital Signs - 12hr 07/03/18 07/03/18 07/03/18 04:53 04:57 08:28 Temperature 98.5 F 98.0 F Pulse Rate 73 78 77 Respiratory 16 18 Rate Blood Pressure 101/68 Blood Pressure 107/70 [Left] O2 Sat by Pulse 100 100 99 Oximetry 07/03/18 07/03/18 09:02 12:09 Temperature 98.0 F Pulse Rate 86 Respiratory 18 Rate Blood Pressure 116/78 Blood Pressure [Left] O2 Sat by Pulse 99 83 L Oximetry - Labs 07/02/18 04:07 07/02/18 04:07
[2018-07-03] MEDS: NACL 0.45% 1000 ML 1,000 ML IV SCH ×2 (15:43→23:57)
--- NOTE | 2018-07-03 16:01 | Progress Note ---
Assessment and Plan Assessment and plan: --Perforated Appendix ; fluid collection/abscess IR s/p CT-guided drainage, removal of 200 mL[left midline fluid collection] This CT-guided aspiration of right lower quadrant collection, scanty purulent m aterial removed --Sepsis; secondary to ruptured viscus; appropriate antibiotics Continue IV fluids, IV antibiotics, follow cultures, ID Following supportive care --Acute appendicitis; surgery following --DVT prophylaxis; SCD, Lovenox. Consults and recommendations noted and appreciated continue clear liquids, advance diet as tolerated Plan of care reviewed with the patient and her nurse History Interval history: Patient seen and examined medical records reviewed Patient feels better mild nausea wants some strong medications for her nausea vomiting Ice chips and sips of water tolerating The patient had flatus and bowel movement Alert awake oriented not in acute distress vital signs reviewed Hospitalist Physical - Constitutional Vitals: Temp Pulse Resp BP Pulse Ox 98.0 F 86 18 116/78 83 L 07/03/18 12:09 07/03/18 12:09 07/03/18 12:09 07/03/18 12:07/03/18 12:09 General appearance: Present: no acute distress, cachectic - EENT Eyes: Present: PERRL, EOM intact - Neck Neck: Present: supple, normal ROM - Respiratory Respiratory: bilateral: diminished, negative: rales, rhonchi, wheezing - Cardiovascular Rhythm: regular Heart Sounds: Present: S1 & S2 - Extremities Extremities: no ischemia, No edema - Abdominal General gastrointestinal: soft, non-tender, non-distended, normal bowel sounds - Integumentary Integumentary: Present: clear, warm - Psychiatric Psychiatric: appropriate mood/affect, cooperative - Neurologic Neurologic: CNII-XII intact, moves all extremities Results - Labs CBC & Chem 7: 07/02/18 04:07 07/02/18 04:07 Labs: Laboratory Last Values WBC 8.1 K/mm3 (4.5-11.0) 07/02/18 04:07 RBC 3.22 M/mm3 (3.65-5.03) L 07/02/18 04:07 Hgb 10.5 gm/dl (10.1-14.3) 07/02/18 04:07 Hct 30.1 % (30.3-42.9) L 07/02/18 04:07 MCV 94 fl (79-97) 07/02/18 04:07 MCH 33 pg (28-32) H 07/02/18 04:07 MCHC 35 % (30-34) H 07/02/18 04:07 RDW 12.6 % (13.2-15.2) L 07/02/18 04:07 Plt Count 466 K/mm3 (140-440) H 07/02/18 04:07 Lymph % (Auto) 22.6 % (13.4-35.0) 07/02/18 04:07 [place] % (Auto) 5.5 % (0.0-7.3) 07/02/18 04:07 Eos % (Auto) 3.2 % (0.0-4.3) 07/02/18 04:07 Baso % (Auto) 0.3 % (0.0-1.8) 07/02/18 04:07 Lymph # 1.8 K/mm3 (1.2-5.4) 07/02/18 04:07 [place] # 0.4 K/mm3 (0.0-0.8) 07/02/18 04:07 Eos # 0.3 K/mm3 (0.0-0.4) 07/02/18 04:07 Baso # 0.0 K/mm3 (0.0-0.1) 07/02/18 04:07 Seg Neutrophils % 68.4 % (40.0-70.0) 07/02/18 04:07 Seg Neutrophils # 5.6 K/mm3 (1.8-7.7) 07/02/18 04:07 Sodium 136 mmol/L (137-145) L 07/02/18 04:07 Potassium 3.6 mmol/L (3.6-5.0) 07/02/18 04:07 Chloride 101.5 mmol/L (98-107) 07/02/18 04:07 Carbon Dioxide 20 mmol/L (22-30) L 07/02/18 04:07 Anion Gap 18 mmol/L 07/02/18 04:07 BUN 4 mg/dL (7-17) L 07/02/18 04:07 Creatinine 0.7 mg/dL (0.7-1.2) 07/02/18 04:07 Estimated GFR > 60 ml/min 07/02/18 04:07 BUN/Creatinine Ratio 6 % 07/02/18 04:07 Glucose 68 mg/dL (65-100) 07/02/18 04:07 Calcium 8.5 mg/dL (8.4-10.2) 07/02/18 04:07 Phosphorus 2.90 mg/dL (2.5-4.5) 07/02/18 04:07 Magnesium 1.50 mg/dL (1.7-2.3) L 07/02/18 04:07 Total Bilirubin 0.40 mg/dL (0.1-1.2) 07/02/18 04:07 AST 18 units/L (5-40) 07/02/18 04:07 ALT 8 units/L (7-56) 07/02/18 04:07 Alkaline Phosphatase 37 units/L (35-129) 07/02/18 04:07 Total Protein 6.6 g/dL (6.3-8.2) 07/02/18 04:07 Albumin 3.1 g/dL (3.9-5) L 07/02/18 04:07 Albumin/Globulin Ratio 0.9 % 07/02/18 04:07 HCG, Qual Negative (Negative) 06/30/18 09:07 Urine Color Yellow (Yellow) 06/30/18 08:37 Urine Turbidity Cloudy (Clear) 06/30/18 08:37 Urine pH 5.0 (5.0-7.0) 06/30/18 08:37 Ur Specific [place] 1.029 (1.003-1.030) 06/30/18 08:37 Urine Protein <15 mg/dl mg/dL (Negative) 06/30/18 08:37 Urine Glucose (UA) Neg mg/dL (Negative) 06/30/18 08:37 Urine Ketones 20 mg/dL (Negative) 06/30/18 08:37 Urine Blood Neg (Negative) 06/30/18 08:37 Urine Nitrite Neg (Negative) 06/30/18 08:37 Urine Bilirubin Neg (Negative) 06/30/18 08:37 Urine Urobilinogen 4.0 mg/dL (<2.0) 06/30/18 08:37 Ur Leukocyte Esterase Tr (Negative) 06/30/18 08:37 Urine WBC (Auto) 5.0 /HPF (0.0-6.0) 06/30/18 08:37 Urine RBC (Auto) 6.0 /HPF (0.0-6.0) 06/30/18 08:37 U Epithel Cells (Auto) 25.0 /HPF (0-13.0) H 06/30/18 08:37 Urine Bacteria (Auto) 1+ /HPF (Negative) 06/30/18 08:37 Urine Mucus 2+ /HPF 06/30/18 08:37 Active Medications - Current Medications Current Medications: Generic Name Dose Route Start Last Admin Trade Name Freq PRN Reason Stop Dose Admin Acetaminophen 650 mg 06/30/18 13:33 Tylenol PO Q4H PRN Pain MILD(1-3)/Fever >100.5/BRANTLEY Albuterol 2.5 mg 06/30/18 13:33 Proventil IH Q4HRT PRN Shortness Of Breath Enoxaparin Sodium 40 mg 06/30/18 22:00 07/02/18 22:31 Lovenox SUB-Q 40 mg QDAY@2200 KARLO Administration Sodium Chloride 1,000 mls @ 125 mls/hr 06/30/18 14:00 07/03/18 15:43 Nacl 0.45% 1000 Ml IV 125 mls/hr DIRECT KARLO Administration Metronidazole 500 mg in 100 mls @ 100 mls/hr 06/30/18 14:00 07/03/18 14:59 Flagyl 500 Mg/100 Ml IV 100 mls/hr Q8HR KARLO Administration Protocol Piperacillin Sod/Tazobactam Sod 4.5 gm in 100 mls @ 200 mls/hr 06/30/18 20:00 07/03/18 12:03 Zosyn/Ns 4.5gm/100ml IV 200 mls/hr Q8H KARLO Administration Protocol Metoclopramide HCl 5 mg 07/02/18 17:07 Reglan IV Q8H PRN Nausea And Vomiting Morphine Sulfate 2 mg 06/30/18 13:33 07/02/18 05:30 Morphine IV 2 mg Q4H PRN Administration Pain, Moderate (4-6) Ondansetron HCl 4 mg 06/30/18 13:33 07/02/18 06:47 Zofran IV 4 mg Q8H PRN Administration Nausea And Vomiting Promethazine HCl 12.5 mg 07/03/18 12:25 07/03/18 13:36 Phenergan PO 12.5 mg Q8H PRN Administration Nausea Sodium Chloride 10 ml 06/30/18 22:00 07/03/18 10:53 Sodium Chloride Flush Syringe 10 Ml IV 10 ml BID KARLO Administration Sodium Chloride 10 ml 06/30/18 13:33 Sodium Chloride Flush Syringe 10 Ml IV PRN PRN LINE FLUSH
[2018-07-03] MEDS: LOVENOX SUB-Q SCH (22:23)
[2018-07-04] MEDS: ZOSYN/NS 4.5GM/100ML 4.5 GM/100 ML VIAL IV SCH ×2 (04:01→11:22)
[2018-07-04] MEDS: PHENERGAN PO PRN (04:05)
[2018-07-04] MEDS: FLAGYL 500 MG/100 ML 500 MG/100 ML BAG IV SCH (05:51)
[2018-07-04] MEDS: ZOFRAN IV PRN (05:51)
[2018-07-04] MEDS: MORPHINE IV PRN (05:54)
[2018-07-04 07:14] LABS: Basophils % (Auto) 0.7 % (0.0-1.8); Eosinophils # (Auto) 0.3 K/mm3 (0.0-0.4); Eosinophils % (Auto) 4.9 % (0.0-4.3); Hematocrit 32.4 % (30.3-42.9); Hemoglobin 11.3 gm/dl (10.1-14.3); Lymphocytes # (Auto) 1.7 K/mm3 (1.2-5.4); Lymphocytes % (Auto) 28.1 % (13.4-35.0); Mean Corpuscular HGB Conc 35 % (30-34); Mean Corpuscular Volume 93 fl (79-97); Monocytes # (Auto) 0.6 K/mm3 (0.0-0.8); Monocytes % (Auto) 10.3 % (0.0-7.3); Platelet Count 543 K/mm3 (140-440); Red Blood Count 3.48 M/mm3 (3.65-5.03)
[2018-07-04 07:38] LABS: BUN/Creatinine Ratio 3; Blood Urea Nitrogen 2 mg/dL (7-17); Calcium 8.3 mg/dL (8.4-10.2); Hemolysis Index 0
[2018-07-04] MEDS: NACL 0.45% 1000 ML 1,000 ML IV SCH ×2 (08:13→17:02)
--- NOTE | 2018-07-04 10:35 | Progress Note ---
Assessment and Plan Cultures: 07/01/2018 Surgical cultures: E. coli, resistant to FLQ's. A/P: This patient is a 23 year old female with no past medical history, that presents in the ED on 06/30/18 with RLQ abdominal pain with radiation to the umbilicus for the last 5 days, she report pain being constant. Upon further evaluation, patient was found to have appendicitis with rupture and abscess. 1. Suspected ruptured appendix with multiple fluid collections: CT of abdomen and pelvis show large pelvic abscess measuring 7.5 cm. s/p CT guided drainage of pelvic abscess. Surgical cultures grew E. colli, resistant to FLQ's. No fevers. no leukocytosis. Currently being treated Unasyn. Plan: -discontinue Zosyn Start Unasyn 3gms IV every 6 hours, duration dependent on surgical plan [facility] M: [id number] O:[phone] Subjective Date of service: 07/04/18 Interval history: Patient seen and examined. Asleep, easily awakened. No acute distress, tolerating clears. Objective - Exam Narrative Exam: Constitutional: Alert, cooperative. No acute distress Head, Ears, Nose: Normocephalic, atraumatic. External ears, nose normal Eyes: Conjunctivae/corneas clear. No icterus. No ptosis. Neck: Supple, no meningeal signs Oral: dentition good, no thrush Cardiovascular: S1, S2 normal. Respiratory: Good air entry, clear to auscultation bilaterally GI: abdominal tenderness, s/p CT guided abscess drainage, +PARUL drain - minimal drainage Musculoskeletal: No pedal edema, no cyanosis. Skin: No rash or abscess. Hem/Lymphatic: No palpable cervical or supraclavicular nodes. No lymphangitis Psych: Mood ok. Affect normal Neurological: Awake, alert, oriented. - Constitutional Vitals: Vital Signs Temp Pulse Resp BP Pulse Ox 98.4 F 92 H 20 122/77 100 07/03/18 17:21 07/03/18 17:21 07/03/18 17:21 07/03/18 17:21 07/03/18 17:21 Temperature -Last 24 Hours Temperature 98.4 F Temperature 98.0 F - Labs CBC & Chem 7: 07/04/18 07:07/04/18 07:03 Labs: Abnormal lab results 07/04/18 07/04/18 Range/Units 07:03 07:04 RBC 3.48 L (3.65-5.03) M/mm3 MCHC 35 H (30-34) % RDW 13.0 L (13.2-15.2) % Plt Count 543 H (140-440) K/mm3 [place] % (Auto) 10.3 H (0.0-7.3) % Eos % (Auto) 4.9 H (0.0-4.3) % Chloride 107.3 H (98-107) mmol/L Carbon Dioxide 21 L (22-30) mmol/L BUN 2 L (7-17) mg/dL Creatinine 0.6 L (0.7-1.2) mg/dL Calcium 8.3 L (8.4-10.2) mg/dL Phosphorus 2.10 L (2.5-4.5) mg/dL Magnesium 1.40 L (1.7-2.3) mg/dL
[2018-07-04] MEDS: SODIUM CHLORIDE FLUSH SYRINGE 10 ML IV SCH ×2 (11:22→22:47)
[2018-07-04] MEDS: UNASYN/NS 3 GM/100 ML 3 GM/100 ML BAG IV SCH ×2 (17:02→23:45)
--- NOTE | 2018-07-04 18:00 | Progress Note ---
Assessment and Plan Assessment and plan: --Perforated Appendix ; fluid collection/abscess IR s/p CT-guided drainage, removal of 200 mL[left midline fluid collection] This CT-guided aspiration of right lower quadrant collection, scanty purulent m aterial removed --Sepsis; secondary to ruptured viscus; appropriate antibiotics Continue IV fluids, IV antibiotics, follow cultures, ID Following supportive care --Acute appendicitis; surgery following --DVT prophylaxis; SCD, Lovenox. Consults and recommendations noted and appreciated continue clear liquids, advance diet as tolerated Plan of care reviewed with the patient and her nurse History Interval history: Patient seen and examined medical records reviewed Patient is tolerating clear liquids Surgery to advance diet as tolerated Vital signs noted Hospitalist Physical - Constitutional Vitals: Temp Pulse Resp BP Pulse Ox 98.4 F 92 H 20 122/77 100 07/03/18 17:21 07/03/18 17:21 07/03/18 17:21 07/03/18 17:21 07/03/18 17:21 General appearance: Present: no acute distress, cachectic - EENT Eyes: Present: PERRL, EOM intact - Neck Neck: Present: supple, normal ROM - Respiratory Respiratory effort: normal Respiratory: bilateral: diminished, negative: rales, rhonchi, wheezing - Cardiovascular Rhythm: regular Heart Sounds: Present: S1 & S2 - Extremities Extremities: no ischemia, No edema - Abdominal General gastrointestinal: soft, non-tender, non-distended, normal bowel sounds - Integumentary Integumentary: Present: clear, warm - Psychiatric Psychiatric: appropriate mood/affect, cooperative - Neurologic Neurologic: CNII-XII intact, moves all extremities Results - Labs CBC & Chem 7: 07/04/18 07:04 07/04/18 07:03 Labs: Laboratory Last Values WBC 6.0 K/mm3 (4.5-11.0) 07/04/18 07:04 RBC 3.48 M/mm3 (3.65-5.03) L 07/04/18 07:04 Hgb 11.3 gm/dl (10.1-14.3) 07/04/18 07:04 Hct 32.4 % (30.3-42.9) 07/04/18 07:04 MCV 93 fl (79-97) 07/04/18 07:04 MCH 32 pg (28-32) 07/04/18 07:04 MCHC 35 % (30-34) H 07/04/18 07:04 RDW 13.0 % (13.2-15.2) L 07/04/18 07:04 Plt Count 543 K/mm3 (140-440) H 07/04/18 07:04 Lymph % (Auto) 28.1 % (13.4-35.0) 07/04/18 07:04 [place] % (Auto) 10.3 % (0.0-7.3) H 07/04/18 07:04 Eos % (Auto) 4.9 % (0.0-4.3) H 07/04/18 07:04 Baso % (Auto) 0.7 % (0.0-1.8) 07/04/18 07:04 Lymph # 1.7 K/mm3 (1.2-5.4) 07/04/18 07:04 [place] # 0.6 K/mm3 (0.0-0.8) 07/04/18 07:04 Eos # 0.3 K/mm3 (0.0-0.4) 07/04/18 07:04 Baso # 0.0 K/mm3 (0.0-0.1) 07/04/18 07:04 Seg Neutrophils % 56.0 % (40.0-70.0) 07/04/18 07:04 Seg Neutrophils # 3.4 K/mm3 (1.8-7.7) 07/04/18 07:04 Sodium 140 mmol/L (137-145) 07/04/18 07:03 Potassium 3.8 mmol/L (3.6-5.0) 07/04/18 07:03 Chloride 107.3 mmol/L (98-107) H 07/04/18 07:03 Carbon Dioxide 21 mmol/L (22-30) L 07/04/18 07:03 Anion Gap 16 mmol/L 07/04/18 07:03 BUN 2 mg/dL (7-17) L 07/04/18 07:03 Creatinine 0.6 mg/dL (0.7-1.2) L 07/04/18 07:03 Estimated GFR > 60 ml/min 07/04/18 07:03 BUN/Creatinine Ratio 3 % 07/04/18 07:03 Glucose 88 mg/dL (65-100) 07/04/18 07:03 Calcium 8.3 mg/dL (8.4-10.2) L 07/04/18 07:03 Phosphorus 2.10 mg/dL (2.5-4.5) L 07/04/18 07:03 Magnesium 1.40 mg/dL (1.7-2.3) L 07/04/18 07:03 Total Bilirubin 0.40 mg/dL (0.1-1.2) 07/02/18 04:07 AST 18 units/L (5-40) 07/02/18 04:07 ALT 8 units/L (7-56) 07/02/18 04:07 Alkaline Phosphatase 37 units/L (35-129) 07/02/18 04:07 Total Protein 6.6 g/dL (6.3-8.2) 07/02/18 04:07 Albumin 3.1 g/dL (3.9-5) L 07/02/18 04:07 Albumin/Globulin Ratio 0.9 % 07/02/18 04:07 HCG, Qual Negative (Negative) 06/30/18 09:07 Urine Color Yellow (Yellow) 06/30/18 08:37 Urine Turbidity Cloudy (Clear) 06/30/18 08:37 Urine pH 5.0 (5.0-7.0) 06/30/18 08:37 Ur Specific [place] 1.029 (1.003-1.030) 06/30/18 08:37 Urine Protein <15 mg/dl mg/dL (Negative) 06/30/18 08:37 Urine Glucose (UA) Neg mg/dL (Negative) 06/30/18 08:37 Urine Ketones 20 mg/dL (Negative) 06/30/18 08:37 Urine Blood Neg (Negative) 06/30/18 08:37 Urine Nitrite Neg (Negative) 06/30/18 08:37 Urine Bilirubin Neg (Negative) 06/30/18 08:37 Urine Urobilinogen 4.0 mg/dL (<2.0) 06/30/18 08:37 Ur Leukocyte Esterase Tr (Negative) 06/30/18 08:37 Urine WBC (Auto) 5.0 /HPF (0.0-6.0) 06/30/18 08:37 Urine RBC (Auto) 6.0 /HPF (0.0-6.0) 06/30/18 08:37 U Epithel Cells (Auto) 25.0 /HPF (0-13.0) H 06/30/18 08:37 Urine Bacteria (Auto) 1+ /HPF (Negative) 06/30/18 08:37 Urine Mucus 2+ /HPF 06/30/18 08:37 Active Medications - Current Medications Current Medications: Generic Name Dose Route Start Last Admin Trade Name Freq PRN Reason Stop Dose Admin Acetaminophen 650 mg 06/30/18 13:33 Tylenol PO Q4H PRN Pain MILD(1-3)/Fever >100.5/BRANTLEY Albuterol 2.5 mg 06/30/18 13:33 Proventil IH Q4HRT PRN Shortness Of Breath Enoxaparin Sodium 40 mg 06/30/18 22:00 07/03/18 22:23 Lovenox SUB-Q 40 mg QDAY@2200 KARLO Administration Sodium Chloride 1,000 mls @ 125 mls/hr 06/30/18 14:00 07/04/18 17:02 Nacl 0.45% 1000 Ml IV 125 mls/hr DIRECT KARLO Administration Ampicillin Sodium/Sulbactam Sodium 3 gm in 100 mls @ 200 mls/hr 07/04/18 18:00 07/04/18 17:02 Unasyn/Ns 3 Gm/100 Ml IV 200 mls/hr Q6HR KARLO Administration Protocol Metoclopramide HCl 5 mg 07/02/18 17:07 Reglan IV Q8H PRN Nausea And Vomiting Morphine Sulfate 2 mg 06/30/18 13:33 07/04/18 05:54 Morphine IV 2 mg Q4H PRN Administration Pain, Moderate (4-6) Ondansetron HCl 4 mg 06/30/18 13:33 07/04/18 05:51 Zofran IV 4 mg Q8H PRN Administration Nausea And Vomiting Promethazine HCl 12.5 mg 07/03/18 12:25 07/04/18 04:05 Phenergan PO 12.5 mg Q8H PRN Administration Nausea Sodium Chloride 10 ml 06/30/18 22:00 07/04/18 11:22 Sodium Chloride Flush Syringe 10 Ml IV Not Given BID KARLO Sodium Chloride 10 ml 06/30/18 13:33 Sodium Chloride Flush Syringe 10 Ml IV PRN PRN LINE FLUSH
[2018-07-04] MEDS: LOVENOX SUB-Q SCH (22:45)
[2018-07-05] MEDS: LOVENOX SUB-Q SCH ×3 (00:27→21:54)
[2018-07-05] MEDS: NACL 0.45% 1000 ML 1,000 ML IV SCH ×3 (01:17→20:49)
[2018-07-05] MEDS: UNASYN/NS 3 GM/100 ML 3 GM/100 ML BAG IV SCH ×3 (06:24→17:52)
--- NOTE | 2018-07-05 09:53 | Progress Note ---
Assessment and Plan Cultures: 07/01/2018 Surgical cultures: E. coli, resistant to FLQ's. A/P: This patient is a 23 year old female with no past medical history, that presents in the ED on 06/30/18 with RLQ abdominal pain with radiation to the umbilicus for the last 5 days, she report pain being constant. Upon further evaluation, patient was found to have appendicitis with rupture and abscess. 1. Suspected ruptured appendix with multiple fluid collections: CT of abdomen and pelvis show large pelvic abscess measuring 7.5 cm. s/p CT guided drainage of pelvic abscess. Surgical cultures grew E. colli, resistant to FLQ's. No fevers. no leukocytosis. Currently being treated Unasyn. Plan: Continue Unasyn 3gms IV every 6 hours, duration dependent on surgical plan f/u Abdominal series scheduled for tomorrow [facility] M: [phone] O:[phone] Subjective Date of service: 07/05/18 Interval history: Patient seen and examined. Awake. Alert. No acute distress, tolerating clears, unable to tolerate solid diet. Objective - Exam Narrative Exam: Constitutional: Alert, cooperative. No acute distress Head, Ears, Nose: Normocephalic, atraumatic. External ears, nose normal Eyes: Conjunctivae/corneas clear. No icterus. No ptosis. Neck: Supple, no meningeal signs Oral: dentition good, no thrush Cardiovascular: S1, S2 normal. Respiratory: Good air entry, clear to auscultation bilaterally GI: abdominal tenderness, s/p CT guided abscess drainage, +PARUL drain - minimal drainage, Musculoskeletal: No pedal edema, no cyanosis. Skin: No rash or abscess. Hem/Lymphatic: No palpable cervical or supraclavicular nodes. No lymphangitis Psych: Mood ok. Affect normal Neurological: Awake, alert, oriented. - Constitutional Vitals: Vital Signs Temp Pulse Resp BP Pulse Ox 97.4 F L 73 18 111/71 99 07/05/18 07:30 07/05/18 07:30 07/05/18 07:30 07/05/18 07:30 07/05/18 07:30 Temperature -Last 24 Hours Temperature 97.4 F Temperature 98.0 F Temperature 98.2 F Temperature 98.2 F Temperature 98 F Temperature 98.1 F - Labs CBC & Chem 7: 07/04/18 07:04 07/04/18 07:03
[2018-07-05] MEDS: SODIUM CHLORIDE FLUSH SYRINGE 10 ML IV SCH ×2 (11:07→22:05)
--- NOTE | 2018-07-05 11:27 | Progress Note ---
History Interval history: Patient seen and examined medical records reviewed Patient feels better tolerating full liquid diet No new complaints Vital signs noted Hospitalist Physical - Constitutional Vitals: Temp Pulse Resp BP Pulse Ox 97.4 F L 73 18 111/71 99 07/05/18 07:30 07/05/18 07:30 07/05/18 07:30 07/05/18 07:30 07/05/18 07:30 General appearance: Present: no acute distress, well-nourished - EENT Eyes: Present: PERRL, EOM intact - Neck Neck: Present: supple, normal ROM - Respiratory Respiratory effort: normal Respiratory: bilateral: diminished, negative: rales, rhonchi, wheezing - Cardiovascular Rhythm: regular Heart Sounds: Present: S1 & S2 - Extremities Extremities: no ischemia, No edema - Abdominal General gastrointestinal: soft, non-tender, non-distended, normal bowel sounds - Integumentary Integumentary: Present: clear, warm - Psychiatric Psychiatric: appropriate mood/affect, cooperative - Neurologic Neurologic: CNII-XII intact, moves all extremities Results - Labs CBC & Chem 7: 07/04/18 07:04 07/04/18 07:03 Labs: Laboratory Last Values WBC 6.0 K/mm3 (4.5-11.0) 07/04/18 07:04 RBC 3.48 M/mm3 (3.65-5.03) L 07/04/18 07:04 Hgb 11.3 gm/dl (10.1-14.3) 07/04/18 07:04 Hct 32.4 % (30.3-42.9) 07/04/18 07:04 MCV 93 fl (79-97) 07/04/18 07:04 MCH 32 pg (28-32) 07/04/18 07:04 MCHC 35 % (30-34) H 07/04/18 07:04 RDW 13.0 % (13.2-15.2) L 07/04/18 07:04 Plt Count 543 K/mm3 (140-440) H 07/04/18 07:04 Lymph % (Auto) 28.1 % (13.4-35.0) 07/04/18 07:04 [place] % (Auto) 10.3 % (0.0-7.3) H 07/04/18 07:04 Eos % (Auto) 4.9 % (0.0-4.3) H 07/04/18 07:04 Baso % (Auto) 0.7 % (0.0-1.8) 07/04/18 07:04 Lymph # 1.7 K/mm3 (1.2-5.4) 07/04/18 07:04 [place] # 0.6 K/mm3 (0.0-0.8) 07/04/18 07:04 Eos # 0.3 K/mm3 (0.0-0.4) 07/04/18 07:04 Baso # 0.0 K/mm3 (0.0-0.1) 07/04/18 07:04 Seg Neutrophils % 56.0 % (40.0-70.0) 07/04/18 07:04 Seg Neutrophils # 3.4 K/mm3 (1.8-7.7) 07/04/18 07:04 Sodium 140 mmol/L (137-145) 07/04/18 07:03 Potassium 3.8 mmol/L (3.6-5.0) 07/04/18 07:03 Chloride 107.3 mmol/L (98-107) H 07/04/18 07:03 Carbon Dioxide 21 mmol/L (22-30) L 07/04/18 07:03 Anion Gap 16 mmol/L 07/04/18 07:03 BUN 2 mg/dL (7-17) L 07/04/18 07:03 Creatinine 0.6 mg/dL (0.7-1.2) L 07/04/18 07:03 Estimated GFR > 60 ml/min 07/04/18 07:03 BUN/Creatinine Ratio 3 % 07/04/18 07:03 Glucose 88 mg/dL (65-100) 07/04/18 07:03 Calcium 8.3 mg/dL (8.4-10.2) L 07/04/18 07:03 Phosphorus 2.10 mg/dL (2.5-4.5) L 07/04/18 07:03 Magnesium 1.40 mg/dL (1.7-2.3) L 07/04/18 07:03 Total Bilirubin 0.40 mg/dL (0.1-1.2) 07/02/18 04:07 AST 18 units/L (5-40) 04/06/19 04:07 ALT 8 units/L (7-56) 07/02/18 04:07 Alkaline Phosphatase 37 units/L (35-129) 07/02/18 04:07 Total Protein 6.6 g/dL (6.3-8.2) 07/02/18 04:07 Albumin 3.1 g/dL (3.9-5) L 07/02/18 04:07 Albumin/Globulin Ratio 0.9 % 07/02/18 04:07 HCG, Qual Negative (Negative) 06/30/18 09:07 Urine Color Yellow (Yellow) 06/30/18 08:37 Urine Turbidity Cloudy (Clear) 06/30/18 08:37 Urine pH 5.0 (5.0-7.0) 06/30/18 08:37 Ur Specific [place] 1.029 (1.003-1.030) 06/30/18 08:37 Urine Protein <15 mg/dl mg/dL (Negative) 06/30/18 08:37 Urine Glucose (UA) Neg mg/dL (Negative) 06/30/18 08:37 Urine Ketones 20 mg/dL (Negative) 06/30/18 08:37 Urine Blood Neg (Negative) 06/30/18 08:37 Urine Nitrite Neg (Negative) 06/30/18 08:37 Urine Bilirubin Neg (Negative) 06/30/18 08:37 Urine Urobilinogen 4.0 mg/dL (<2.0) 06/30/18 08:37 Ur Leukocyte Esterase Tr (Negative) 06/30/18 08:37 Urine WBC (Auto) 5.0 /HPF (0.0-6.0) 06/30/18 08:37 Urine RBC (Auto) 6.0 /HPF (0.0-6.0) 06/30/18 08:37 U Epithel Cells (Auto) 25.0 /HPF (0-13.0) H 06/30/18 08:37 Urine Bacteria (Auto) 1+ /HPF (Negative) 06/30/18 08:37 Urine Mucus 2+ /HPF 06/30/18 08:37 Active Medications - Current Medications Current Medications: Generic Name Dose Route Start Last Admin Trade Name Freq PRN Reason Stop Dose Admin Acetaminophen 650 mg 06/30/18 13:33 Tylenol PO Q4H PRN Pain MILD(1-3)/Fever >100.5/BRANTLEY Albuterol 2.5 mg 06/30/18 13:33 Proventil IH Q4HRT PRN Shortness Of Breath Enoxaparin Sodium 40 mg 06/30/18 22:00 07/05/18 00:41 Lovenox SUB-Q 40 mg QDAY@2200 KARLO Administration Sodium Chloride 1,000 mls @ 125 mls/hr 06/30/18 14:00 07/05/18 01:17 Nacl 0.45% 1000 Ml IV 125 mls/hr DIRECT KARLO Administration Ampicillin Sodium/Sulbactam Sodium 3 gm in 100 mls @ 200 mls/hr 07/04/18 18:00 07/05/18 06:24 Unasyn/Ns 3 Gm/100 Ml IV 200 mls/hr Q6HR KARLO Administration Protocol Metoclopramide HCl 5 mg 07/02/18 17:07 Reglan IV Q8H PRN Nausea And Vomiting Morphine Sulfate 2 mg 06/30/18 13:33 07/04/18 05:54 Morphine IV 2 mg Q4H PRN Administration Pain, Moderate (4-6) Ondansetron HCl 4 mg 06/30/18 13:33 07/04/18 05:51 Zofran IV 4 mg Q8H PRN Administration Nausea And Vomiting Promethazine HCl 12.5 mg 07/03/18 12:25 07/04/18 04:05 Phenergan PO 12.5 mg Q8H PRN Administration Nausea Sodium Chloride 10 ml 06/30/18 22:00 07/05/18 11:07 Sodium Chloride Flush Syringe 10 Ml IV 10 ml BID KARLO Administration Sodium Chloride 10 ml 06/30/18 13:33 Sodium Chloride Flush Syringe 10 Ml IV PRN PRN LINE FLUSH
--- NOTE | 2018-07-05 11:27 | Progress Note ---
Assessment and Plan Assessment and plan: --Perforated Appendix ; fluid collection/abscess IR s/p CT-guided drainage, removal of 200 mL[left midline fluid collection] This CT-guided aspiration of right lower quadrant collection, scanty purulent m aterial removed Management per surgery --Sepsis; secondary to ruptured viscus; appropriate antibiotics Continue IV fluids, IV antibiotics, follow cultures, ID Following supportive care --DVT prophylaxis; SCD, Lovenox. Consults and recommendations noted and appreciated continue clear liquids, advance diet as tolerated Plan of care reviewed with the patient and her nurse History Interval history: Patient feels better no new complaints, tolerating clear liquids Alert awake oriented 3 vital signs reviewed Hospitalist Physical - Constitutional Vitals: Temp Pulse Resp BP Pulse Ox 97.4 F L 73 18 111/71 99 07/05/18 07:30 07/05/18 07:30 07/05/18 07:30 07/05/18 07:30 07/05/18 07:30 General appearance: Present: no acute distress, well-nourished - EENT Eyes: Present: PERRL, EOM intact - Neck Neck: Present: supple, normal ROM - Respiratory Respiratory effort: normal Respiratory: bilateral: diminished, negative: rales, rhonchi, wheezing - Cardiovascular Rhythm: regular Heart Sounds: Present: S1 & S2 - Extremities Extremities: no ischemia, No edema - Abdominal General gastrointestinal: soft, non-tender, non-distended, normal bowel sounds, other (drain in place) - Integumentary Integumentary: Present: clear, warm - Psychiatric Psychiatric: appropriate mood/affect, cooperative - Neurologic Neurologic: CNII-XII intact, moves all extremities Results - Labs CBC & Chem 7: 07/04/18 07:04 07/04/18 07:03 Labs: Laboratory Last Values WBC 6.0 K/mm3 (4.5-11.0) 07/04/18 07:04 RBC 3.48 M/mm3 (3.65-5.03) L 07/04/18 07:04 Hgb 11.3 gm/dl (10.1-14.3) 07/04/18 07:04 Hct 32.4 % (30.3-42.9) 07/04/18 07:04 MCV 93 fl (79-97) 07/04/18 07:04 MCH 32 pg (28-32) 07/04/18 07:04 MCHC 35 % (30-34) H 07/04/18 07:04 RDW 13.0 % (13.2-15.2) L 07/04/18 07:04 Plt Count 543 K/mm3 (140-440) H 07/04/18 07:04 Lymph % (Auto) 28.1 % (13.4-35.0) 07/04/18 07:04 [place] % (Auto) 10.3 % (0.0-7.3) H 07/04/18 07:04 Eos % (Auto) 4.9 % (0.0-4.3) H 07/04/18 07:04 Baso % (Auto) 0.7 % (0.0-1.8) 07/04/18 07:04 Lymph # 1.7 K/mm3 (1.2-5.4) 07/04/18 07:04 [place] # 0.6 K/mm3 (0.0-0.8) 07/04/18 07:04 Eos # 0.3 K/mm3 (0.0-0.4) 07/04/18 07:04 Baso # 0.0 K/mm3 (0.0-0.1) 07/04/18 07:04 Seg Neutrophils % 56.0 % (40.0-70.0) 07/04/18 07:04 Seg Neutrophils # 3.4 K/mm3 (1.8-7.7) 07/04/18 07:04 Sodium 140 mmol/L (137-145) 07/04/18 07:03 Potassium 3.8 mmol/L (3.6-5.0) 07/04/18 07:03 Chloride 107.3 mmol/L (98-107) H 07/04/18 07:03 Carbon Dioxide 21 mmol/L (22-30) L 07/04/18 07:03 Anion Gap 16 mmol/L 07/04/18 07:03 BUN 2 mg/dL (7-17) L 07/04/18 07:03 Creatinine 0.6 mg/dL (0.7-1.2) L 07/04/18 07:03 Estimated GFR > 60 ml/min 07/04/18 07:03 BUN/Creatinine Ratio 3 % 07/04/18 07:03 Glucose 88 mg/dL (65-100) 07/04/18 07:03 Calcium 8.3 mg/dL (8.4-10.2) L 07/04/18 07:03 Phosphorus 2.10 mg/dL (2.5-4.5) L 07/04/18 07:03 Magnesium 1.40 mg/dL (1.7-2.3) L 07/04/18 07:03 Total Bilirubin 0.40 mg/dL (0.1-1.2) 07/02/18 04:07 AST 18 units/L (5-40) 07/02/18 04:07 ALT 8 units/L (7-56) 07/02/18 04:07 Alkaline Phosphatase 37 units/L (35-129) 07/02/18 04:07 Total Protein 6.6 g/dL (6.3-8.2) 07/02/18 04:07 Albumin 3.1 g/dL (3.9-5) L 07/02/18 04:07 Albumin/Globulin Ratio 0.9 % 07/02/18 04:07 HCG, Qual Negative (Negative) 06/30/18 09:07 Urine Color Yellow (Yellow) 06/30/18 08:37 Urine Turbidity Cloudy (Clear) 06/30/18 08:37 Urine pH 5.0 (5.0-7.0) 06/30/18 08:37 Ur Specific [place] 1.029 (1.003-1.030) 06/30/18 08:37 Urine Protein <15 mg/dl mg/dL (Negative) 06/30/18 08:37 Urine Glucose (UA) Neg mg/dL (Negative) 06/30/18 08:37 Urine Ketones 20 mg/dL (Negative) 06/30/18 08:37 Urine Blood Neg (Negative) 06/30/18 08:37 Urine Nitrite Neg (Negative) 06/30/18 08:37 Urine Bilirubin Neg (Negative) 06/30/18 08:37 Urine Urobilinogen 4.0 mg/dL (<2.0) 06/30/18 08:37 Ur Leukocyte Esterase Tr (Negative) 06/30/18 08:37 Urine WBC (Auto) 5.0 /HPF (0.0-6.0) 06/30/18 08:37 Urine RBC (Auto) 6.0 /HPF (0.0-6.0) 06/30/18 08:37 U Epithel Cells (Auto) 25.0 /HPF (0-13.0) H 06/30/18 08:37 Urine Bacteria (Auto) 1+ /HPF (Negative) 06/30/18 08:37 Urine Mucus 2+ /HPF 06/30/18 08:37 Active Medications - Current Medications Current Medications: Generic Name Dose Route Start Last Admin Trade Name Freq PRN Reason Stop Dose Admin Acetaminophen 650 mg 06/30/18 13:33 Tylenol PO Q4H PRN Pain MILD(1-3)/Fever >100.5/BRANTLEY Albuterol 2.5 mg 06/30/18 13:33 Proventil IH Q4HRT PRN Shortness Of Breath Enoxaparin Sodium 40 mg 06/30/18 22:00 07/05/18 00:41 Lovenox SUB-Q 40 mg QDAY@2200 KARLO Administration Sodium Chloride 1,000 mls @ 125 mls/hr 06/30/18 14:00 07/05/18 01:17 Nacl 0.45% 1000 Ml IV 125 mls/hr DIRECT KARLO Administration Ampicillin Sodium/Sulbactam Sodium 3 gm in 100 mls @ 200 mls/hr 07/04/18 18:00 07/05/18 06:24 Unasyn/Ns 3 Gm/100 Ml IV 200 mls/hr Q6HR KARLO Administration Protocol Metoclopramide HCl 5 mg 07/02/18 17:07 Reglan IV Q8H PRN Nausea And Vomiting Morphine Sulfate 2 mg 06/30/18 13:33 07/04/18 05:54 Morphine IV 2 mg Q4H PRN Administration Pain, Moderate (4-6) Ondansetron HCl 4 mg 06/30/18 13:33 07/04/18 05:51 Zofran IV 4 mg Q8H PRN Administration Nausea And Vomiting Promethazine HCl 12.5 mg 07/03/18 12:25 07/04/18 04:05 Phenergan PO 12.5 mg Q8H PRN Administration Nausea Sodium Chloride 10 ml 06/30/18 22:00 07/05/18 11:07 Sodium Chloride Flush Syringe 10 Ml IV 10 ml BID KARLO Administration Sodium Chloride 10 ml 06/30/18 13:33 Sodium Chloride Flush Syringe 10 Ml IV PRN PRN LINE FLUSH
--- NOTE | 2018-07-05 13:01 | Progress Note ---
Assessment and Plan Pt states "feeling well". positive flatus. 30 cc drainage/24 hrs Abd 1+ distended. non tender drainage cults + for E.coli status quo continue on cl liq as layton antibiotics as per ID abd series in am Selected Entries 07/05/18 11:30 Temperature 98.3 F Respiratory 17 Rate Blood Pressure 111/78 [Left] Laboratory Tests 07/02/18 07/04/18 07/04/18 04:07 07:03 07:04 WBC 8.1 6.0 Hgb 10.5 11.3 Hct 30.1 L 32.4 Sodium 140 Potassium 3.8 Chloride 107.3 H Carbon Dioxide 21 L Anion Gap 16 BUN 2 L Creatinine 0.6 L Objective Vital Signs - 12hr 07/05/18 07/05/18 07/05/18 04:01 07:30 11:30 Temperature 98.0 F 97.4 F L 98.3 F Pulse Rate 60 73 89 Respiratory 16 18 17 Rate Blood Pressure 114/69 Blood Pressure 111/71 111/78 [Left] O2 Sat by Pulse 100 99 100 Oximetry - Labs 07/04/18 07:04 07/04/18 07:03
[2018-07-06] MEDS: UNASYN/NS 3 GM/100 ML 3 GM/100 ML BAG IV SCH ×4 (00:28→17:24)
[2018-07-06] MEDS: NACL 0.45% 1000 ML 1,000 ML IV SCH ×2 (05:59→22:38)
--- NOTE | 2018-07-06 08:31 | XRay Report ---
ABDOMINAL SERIES: History: Small bowel obstruction. Erect chest film shows no acute or significant changes involving the heart or lung rodriguez. There is no evidence of free air beneath the diaphragms. The gas pattern within the abdomen is unremarkable. There is no evidence of bowel dilatation, significant air-fluid levels, or masses. Organ shadows are unremarkable. A percutaneous pigtail catheter terminates in the pelvis. IMPRESSION: Abdominal series within normal limits.
--- NOTE | 2018-07-06 10:39 | Progress Note ---
Assessment and Plan Pt feeling well without compl. layton cl liq diet Abd soft Abd series wnl advance to full liq diet f/u CT in am Selected Entries 07/06/18 07/06/18 04:56 07:52 Temperature 98.5 F Pulse Rate 70 Respiratory 16 Rate Blood Pressure 117/85 Objective Vital Signs - 12hr 07/06/18 07/06/18 07/06/18 00:24 04:56 07:52 Temperature 98.8 F 98.1 F 98.5 F Pulse Rate 77 70 Respiratory 18 18 16 Rate Blood Pressure 120/72 98/66 117/85 O2 Sat by Pulse 100 100 Oximetry - Labs 07/04/18 07:04 07/04/18 07:03
--- NOTE | 2018-07-06 11:07 | Progress Note ---
Assessment and Plan Cultures: 07/01/2018 Surgical cultures: E. coli, resistant to FLQ's. A/P: This patient is a 23 year old female with no past medical history, that presents in the ED on 06/30/18 with RLQ abdominal pain with radiation to the umbilicus for the last 5 days, she report pain being constant. Upon further evaluation, patient was found to have appendicitis with rupture and abscess. 1. Suspected ruptured appendix with multiple fluid collections: CT of abdomen and pelvis show large pelvic abscess measuring 7.5 cm. s/p CT guided drainage of pelvic abscess. Surgical cultures grew E. colli, resistant to FLQ's. No fevers. no leukocytosis. Abdominal series within normal limits. CT Abdomen and Pelvis tomorrow AM. Plan: Continue Unasyn 3gms IV every 6 hours, duration dependent on surgical plan F/u CT Abdomen and Pelvis [facility] M: [phone] O:[phone] Subjective Date of service: 07/06/18 Interval history: Patient seen and examined. Awake. Alert. No acute distress, tolerating clears, unable to tolerate solid diet. Objective - Exam Narrative Exam: Constitutional: Alert, cooperative. No acute distress Head, Ears, Nose: Normocephalic, atraumatic. External ears, nose normal Eyes: Conjunctivae/corneas clear. No icterus. No ptosis. Neck: Supple, no meningeal signs Oral: dentition good, no thrush Cardiovascular: S1, S2 normal. Respiratory: Good air entry, clear to auscultation bilaterally GI: abdominal tenderness, s/p CT guided abscess drainage, +PARUL drain - minimal drainage, Musculoskeletal: No pedal edema, no cyanosis. Skin: No rash or abscess. Hem/Lymphatic: No palpable cervical or supraclavicular nodes. No lymphangitis Psych: Mood ok. Affect normal Neurological: Awake, alert, oriented. - Constitutional Vitals: Vital Signs Temp Pulse Resp BP Pulse Ox 98.5 F 70 16 117/85 100 07/06/18 07:52 07/06/18 04:56 07/06/18 07:52 07/06/18 07:52 07/06/18 04:56 Temperature -Last 24 Hours Temperature 98.5 F Temperature 98.1 F Temperature 98.8 F Temperature 98.8 F Temperature 98.2 F Temperature 98.3 F - Labs CBC & Chem 7: 07/06/18 11:41 07/04/18 07:03
[2018-07-06 11:56] LABS: Basophils % (Auto) 0.6 % (0.0-1.8); Eosinophils # (Auto) 0.3 K/mm3 (0.0-0.4); Hematocrit 30.6 % (30.3-42.9); Hemoglobin 10.4 gm/dl (10.1-14.3); Lymphocytes % (Auto) 39.4 % (13.4-35.0); Mean Corpuscular HGB Conc 34 % (30-34); Mean Corpuscular Volume 94 fl (79-97); Monocytes # (Auto) 0.6 K/mm3 (0.0-0.8); Monocytes % (Auto) 12.2 % (0.0-7.3); Platelet Count 573 K/mm3 (140-440); Red Blood Count 3.25 M/mm3 (3.65-5.03); Red Cell Distribution Width 13.3 % (13.2-15.2)
[2018-07-06] MEDS: SODIUM CHLORIDE FLUSH SYRINGE 10 ML IV SCH ×2 (12:32→22:34)
[2018-07-06] MEDS: LOVENOX SUB-Q SCH (22:33)
[2018-07-07] MEDS: UNASYN/NS 3 GM/100 ML 3 GM/100 ML BAG IV SCH ×5 (00:15→23:00)
[2018-07-07] MEDS: NACL 0.45% 1000 ML 1,000 ML IV SCH ×2 (09:52→23:07)
--- NOTE | 2018-07-07 10:56 | Progress Note ---
Assessment and Plan Cultures: 07/01/2018 Surgical cultures: E. coli, resistant to FLQ's. A/P: This patient is a 23 year old female with no past medical history, that presents in the ED on 06/30/18 with RLQ abdominal pain with radiation to the umbilicus for the last 5 days, she report pain being constant. Upon further evaluation, patient was found to have appendicitis with rupture and abscess. 1. Suspected ruptured appendix with multiple fluid collections: CT of abdomen and pelvis show large pelvic abscess measuring 7.5 cm. s/p CT guided drainage of pelvic abscess. Surgical cultures grew E. colli, resistant to FLQ's. No fevers. no leukocytosis. Abdominal series within normal limits. CT Abdomen and Pelvis: Continued inflammatory change involving the appendix. Smaller residual abscess to the right of the bladder measuring approximately 1.7 x 1 cm . Thick-walled cystic structure posterior to the uterus that is smaller in size as compared to the previous study and measures approximately 3.5 x 2.4 cm. Differential diagnosis includes ovarian cyst, tubo- ovarian abscess, or other pelvic abscess. Plan: Continue Unasyn 3gms IV every 6 hours, duration dependent on surgical plan Consider Pelvic ultrasound Deanna Duque NP [facility] M: [phone] O:[phone] Subjective Date of service: 07/07/18 Interval history: Patient seen and examined. Awake. Alert. No acute distress, tolerating clears. Objective - Exam Narrative Exam: Constitutional: Alert, cooperative. No acute distress Head, Ears, Nose: Normocephalic, atraumatic. External ears, nose normal Eyes: Conjunctivae/corneas clear. No icterus. No ptosis. Neck: Supple, no meningeal signs Oral: dentition good, no thrush Cardiovascular: S1, S2 normal. Respiratory: Good air entry, clear to auscultation bilaterally GI: abdominal tenderness, s/p CT guided abscess drainage, +PARUL drain - minimal drainage, Musculoskeletal: No pedal edema, no cyanosis. Skin: No rash or abscess. Hem/Lymphatic: No palpable cervical or supraclavicular nodes. No lymphangitis Psych: Mood ok. Affect flat Neurological: Awake, alert, oriented. - Constitutional Vitals: Vital Signs Temp Pulse Resp BP Pulse Ox 97.1 F L 84 18 119/79 99 07/07/18 08:00 07/07/18 08:01 07/07/18 08:00 07/07/18 08:00 07/07/18 08:01 Temperature -Last 24 Hours Temperature 97.1 F Temperature 97.4 F Temperature 97.4 F Temperature 97.3 F - Labs CBC & Chem 7: 07/06/18 11:41 07/04/18 07:03 Labs: Abnormal lab results 07/06/18 Range/Units 11:41 RBC 3.25 L (3.65-5.03) M/mm3 Plt Count 573 H (140-440) K/mm3 Lymph % (Auto) 39.4 H (13.4-35.0) % [place] % (Auto) 12.2 H (0.0-7.3) % Eos % (Auto) 6.0 H (0.0-4.3) %
--- NOTE | 2018-07-07 11:23 | Progress Note ---
Assessment and Plan Assessment and plan: --Sepsis; secondary to ruptured viscus; appropriate antibiotics Continue IV fluids, Unasyn ,cultures Escherichia coli ID Following supportive care --Perforated Appendix ; fluid collection/abscess IR s/p CT-guided drainage, removal of 200 mL[left midline fluid collection] This CT-guided aspiration of right lower quadrant collection, scanty purulent material removed On clear liquids, advance as tolerated --DVT prophylaxis; SCD, Lovenox. Consults and recommendations noted and appreciated continue clear liquids, advance diet as tolerated Plan of care reviewed with the patient and her nurse History Interval history: Patient feels better tolerating clear liquids Vital signs reviewed Hospitalist Physical - Constitutional Vitals: Temp Pulse Resp BP Pulse Ox 97.1 F L 84 18 119/79 99 07/07/18 08:00 07/07/18 08:01 07/07/18 08:00 07/07/18 08:00 07/07/18 08:01 General appearance: Present: no acute distress, well-nourished - EENT Eyes: Present: PERRL, EOM intact - Neck Neck: Present: supple, normal ROM - Respiratory Respiratory effort: normal Respiratory: bilateral: diminished, negative: rales, rhonchi, wheezing - Cardiovascular Rhythm: regular Heart Sounds: Present: S1 & S2 - Extremities Extremities: no ischemia, No edema - Abdominal General gastrointestinal: soft, non-tender, non-distended, normal bowel sounds - Integumentary Integumentary: Present: clear, warm - Psychiatric Psychiatric: appropriate mood/affect, cooperative - Neurologic Neurologic: CNII-XII intact, moves all extremities Results - Labs CBC & Chem 7: 07/06/18 11:41 07/04/18 07:03 Labs: Laboratory Last Values WBC 5.0 K/mm3 (4.5-11.0) 07/06/18 11:41 RBC 3.25 M/mm3 (3.65-5.03) L 07/06/18 11:41 Hgb 10.4 gm/dl (10.1-14.3) 07/06/18 11:41 Hct 30.6 % (30.3-42.9) 07/06/18 11:41 MCV 94 fl (79-97) 07/06/18 11:41 MCH 32 pg (28-32) 07/06/18 11:41 MCHC 34 % (30-34) 07/06/18 11:41 RDW 13.3 % (13.2-15.2) 07/06/18 11:41 Plt Count 573 K/mm3 (140-440) H 07/06/18 11:41 Lymph % (Auto) 39.4 % (13.4-35.0) H 07/06/18 11:41 [place] % (Auto) 12.2 % (0.0-7.3) H 07/06/18 11:41 Eos % (Auto) 6.0 % (0.0-4.3) H 07/06/18 11:41 Baso % (Auto) 0.6 % (0.0-1.8) 07/06/18 11:41 Lymph # 2.0 K/mm3 (1.2-5.4) 07/06/18 11:41 [place] # 0.6 K/mm3 (0.0-0.8) 07/06/18 11:41 Eos # 0.3 K/mm3 (0.0-0.4) 07/06/18 11:41 Baso # 0.0 K/mm3 (0.0-0.1) 07/06/18 11:41 Seg Neutrophils % 41.8 % (40.0-70.0) 07/06/18 11:41 Seg Neutrophils # 2.1 K/mm3 (1.8-7.7) 07/06/18 11:41 Sodium 140 mmol/L (137-145) 07/04/18 07:03 Potassium 3.8 mmol/L (3.6-5.0) 07/04/18 07:03 Chloride 107.3 mmol/L (98-107) H 07/04/18 07:03 Carbon Dioxide 21 mmol/L (22-30) L 07/04/18 07:03 Anion Gap 16 mmol/L 07/04/18 07:03 BUN 2 mg/dL (7-17) L 07/04/18 07:03 Creatinine 0.6 mg/dL (0.7-1.2) L 07/04/18 07:03 Estimated GFR > 60 ml/min 07/04/18 07:03 BUN/Creatinine Ratio 3 % 07/04/18 07:03 Glucose 88 mg/dL (65-100) 07/04/18 07:03 Calcium 8.3 mg/dL (8.4-10.2) L 07/04/18 07:03 Phosphorus 2.10 mg/dL (2.5-4.5) L 07/04/18 07:03 Magnesium 1.40 mg/dL (1.7-2.3) L 07/04/18 07:03 Total Bilirubin 0.40 mg/dL (0.1-1.2) 07/02/18 04:07 AST 18 units/L (5-40) 07/02/18 04:07 ALT 8 units/L (7-56) 07/02/18 04:07 Alkaline Phosphatase 37 units/L (35-129) 07/02/18 04:07 Total Protein 6.6 g/dL (6.3-8.2) 07/02/18 04:07 Albumin 3.1 g/dL (3.9-5) L 07/02/18 04:07 Albumin/Globulin Ratio 0.9 % 07/02/18 04:07 HCG, Qual Negative (Negative) 06/30/18 09:07 Urine Color Yellow (Yellow) 06/30/18 08:37 Urine Turbidity Cloudy (Clear) 06/30/18 08:37 Urine pH 5.0 (5.0-7.0) 06/30/18 08:37 Ur Specific [place] 1.029 (1.003-1.030) 06/30/18 08:37 Urine Protein <15 mg/dl mg/dL (Negative) 06/30/18 08:37 Urine Glucose (UA) Neg mg/dL (Negative) 06/30/18 08:37 Urine Ketones 20 mg/dL (Negative) 06/30/18 08:37 Urine Blood Neg (Negative) 06/30/18 08:37 Urine Nitrite Neg (Negative) 06/30/18 08:37 Urine Bilirubin Neg (Negative) 06/30/18 08:37 Urine Urobilinogen 4.0 mg/dL (<2.0) 06/30/18 08:37 Ur Leukocyte Esterase Tr (Negative) 06/30/18 08:37 Urine WBC (Auto) 5.0 /HPF (0.0-6.0) 06/30/18 08:37 Urine RBC (Auto) 6.0 /HPF (0.0-6.0) 06/30/18 08:37 U Epithel Cells (Auto) 25.0 /HPF (0-13.0) H 06/30/18 08:37 Urine Bacteria (Auto) 1+ /HPF (Negative) 06/30/18 08:37 Urine Mucus 2+ /HPF 06/30/18 08:37 Active Medications - Current Medications Current Medications: Generic Name Dose Route Start Last Admin Trade Name Freq PRN Reason Stop Dose Admin Acetaminophen 650 mg 06/30/18 13:33 Tylenol PO Q4H PRN Pain MILD(1-3)/Fever >100.5/BRANTLEY Albuterol 2.5 mg 06/30/18 13:33 Proventil IH Q4HRT PRN Shortness Of Breath Enoxaparin Sodium 40 mg 06/30/18 22:00 07/06/18 22:33 Lovenox SUB-Q 40 mg QDAY@2200 KARLO Administration Sodium Chloride 1,000 mls @ 125 mls/hr 06/30/18 14:00 07/07/18 09:52 Nacl 0.45% 1000 Ml IV 125 mls/hr DIRECT KARLO Administration Ampicillin Sodium/Sulbactam Sodium 3 gm in 100 mls @ 200 mls/hr 07/04/18 18:00 07/07/18 06:01 Unasyn/Ns 3 Gm/100 Ml IV 200 mls/hr Q6HR KARLO Administration Protocol Metoclopramide HCl 5 mg 07/02/18 17:07 Reglan IV Q8H PRN Nausea And Vomiting Morphine Sulfate 2 mg 06/30/18 13:33 07/04/18 05:54 Morphine IV 2 mg Q4H PRN Administration Pain, Moderate (4-6) Ondansetron HCl 4 mg 06/30/18 13:33 07/04/18 05:51 Zofran IV 4 mg Q8H PRN Administration Nausea And Vomiting Promethazine HCl 12.5 mg 07/03/18 12:25 07/04/18 04:05 Phenergan PO 12.5 mg Q8H PRN Administration Nausea Sodium Chloride 10 ml 06/30/18 22:00 07/06/18 22:34 Sodium Chloride Flush Syringe 10 Ml IV 10 ml BID KARLO Administration Sodium Chloride 10 ml 06/30/18 13:33 Sodium Chloride Flush Syringe 10 Ml IV PRN PRN LINE FLUSH Nutrition/Malnutrition Assess - Dietary Evaluation Nutrition/Malnutrition Findings: Nutrition Notes Start: 07/07/18 10:54 Freq: Status: Active Protocol: Document 07/07/18 10:54 EB (Rec: 07/07/18 11:03 EB [id number]) Co-Sign 07/07/18 10:54 LP Nutrition Notes Need for Assessment generated from: LOS Initial or Follow up Assessment Other Pertinent Diagnosis appendicitis Current Diet [place] Labs/Tests Reviewed Pertinent Medications Reglan Height 5 ft Weight 49.9 kg Usual Body Weight 54.431 kg [place] Body Weight (kg) 45.45 BMI 21.4 Weight change and time frame 10 lbs loss in last 3 months due to appendicitis Weight Status Appropriate Subjective/Other Information Screened for LOS. Pt just finished breakfast at time of visit. Pt states she has had little intake in last 3 months due to worsening appendicitis pain. Pt reports eating 100% of [place] diet if chicken broth is delivered. Pt states she does not like beef broth or the "watery" mashed potatoes and wont eat them if they come. Pt agreed to Ensure clear to supplement her [place] diet. Percent of energy/protein needs met: 43%/69% Burn Absent Trauma Absent Current % PO Fair (50-74%) Minimum of two criteria No #1 Nutrition Diagnosis Inadequate oral intake Etiology appendicitis As Evidenced by Signs and Symptoms on [place] diet and consuming selective items Is patient on ventilator? No Is Patient Ambulatory and/or Out of Bed Yes REE-([facility]-ambulatory/OOB) [ 1521.650 NUTR.MSJOOB] Kcal/Kg value to use for calculation 40 Approximate Energy Requirements Using 1996 kcal/Kg Calculation Used for Recommendations Kcal/kg Additional Notes PRO: 0.8-1 g/kg (40-50 g/day) Fluid: 1 mL/kcal Nutrition Intervention Change Diet Order: advance as medically feasible Add Supplement/Snack (indicate name/kcal Ensure Clear daily /protein ) Provides kCal: 240 Provides Protein (gm) 8 Goal #1 Diet advancement Goal #2 Meet at least 75% reilly and pro needs via PO and ONS intake Anticipated Discharge Needs: unable to determine at this time Follow-Up By: 07/11/18 Additional Comments F/u: diet advancement and PO + ONS intakes
--- NOTE | 2018-07-07 11:24 | Progress Note ---
Assessment and Plan Assessment and plan: -Patient tolerating clear liquids, surgery recommended repeat CT abdomen tomorrow And advance the diet as tolerated --Perforated Appendix ; fluid collection/abscess IR s/p CT-guided drainage, removal of 200 mL[left midline fluid collection] This CT-guided aspiration of right lower quadrant collection, scanty purulent material removed Management per surgery --Sepsis; secondary to ruptured viscus; appropriate antibiotics Continue IV fluids, IV antibiotics, follow cultures, ID Following supportive care --DVT prophylaxis; SCD, Lovenox. Consults and recommendations noted and appreciated continue clear liquids, advance diet as tolerated Plan of care reviewed with the patient and her nurse History Interval history: patient seen and examined medical records reviewed Patient feels better anxious to go home Tolerating clear liquids, drain in place Vital signs reviewed Hospitalist Physical - Constitutional Vitals: Temp Pulse Resp BP Pulse Ox 97.1 F L 84 18 119/79 99 07/07/18 08:00 07/07/18 08:01 07/07/18 08:00 07/07/18 08:00 07/07/18 08:01 General appearance: Present: no acute distress, well-nourished - EENT Eyes: Present: PERRL, EOM intact - Neck Neck: Present: supple, normal ROM - Respiratory Respiratory effort: normal Respiratory: negative: rales, rhonchi, wheezing - Cardiovascular Rhythm: regular Heart Sounds: Present: S1 & S2 - Extremities Extremities: no ischemia, No edema - Abdominal General gastrointestinal: soft, non-tender, normal bowel sounds - Integumentary Integumentary: Present: clear, warm - Psychiatric Psychiatric: appropriate mood/affect, cooperative - Neurologic Neurologic: moves all extremities Results - Labs CBC & Chem 7: 07/06/18 11:41 07/04/18 07:03 Labs: Laboratory Last Values WBC 5.0 K/mm3 (4.5-11.0) 07/06/18 11:41 RBC 3.25 M/mm3 (3.65-5.03) L 07/06/18 11:41 Hgb 10.4 gm/dl (10.1-14.3) 07/06/18 11:41 Hct 30.6 % (30.3-42.9) 07/06/18 11:41 MCV 94 fl (79-97) 07/06/18 11:41 MCH 32 pg (28-32) 07/06/18 11:41 MCHC 34 % (30-34) 07/06/18 11:41 RDW 13.3 % (13.2-15.2) 07/06/18 11:41 Plt Count 573 K/mm3 (140-440) H 07/06/18 11:41 Lymph % (Auto) 39.4 % (13.4-35.0) H 07/06/18 11:41 [place] % (Auto) 12.2 % (0.0-7.3) H 07/06/18 11:41 Eos % (Auto) 6.0 % (0.0-4.3) H 07/06/18 11:41 Baso % (Auto) 0.6 % (0.0-1.8) 07/06/18 11:41 Lymph # 2.0 K/mm3 (1.2-5.4) 07/06/18 11:41 [place] # 0.6 K/mm3 (0.0-0.8) 07/06/18 11:41 Eos # 0.3 K/mm3 (0.0-0.4) 07/06/18 11:41 Baso # 0.0 K/mm3 (0.0-0.1) 07/06/18 11:41 Seg Neutrophils % 41.8 % (40.0-70.0) 07/06/18 11:41 Seg Neutrophils # 2.1 K/mm3 (1.8-7.7) 07/06/18 11:41 Sodium 140 mmol/L (137-145) 07/04/18 07:03 Potassium 3.8 mmol/L (3.6-5.0) 07/04/18 07:03 Chloride 107.3 mmol/L (98-107) H 07/04/18 07:03 Carbon Dioxide 21 mmol/L (22-30) L 07/04/18 07:03 Anion Gap 16 mmol/L 07/04/18 07:03 BUN 2 mg/dL (7-17) L 07/04/18 07:03 Creatinine 0.6 mg/dL (0.7-1.2) L 07/04/18 07:03 Estimated GFR > 60 ml/min 07/04/18 07:03 BUN/Creatinine Ratio 3 % 07/04/18 07:03 Glucose 88 mg/dL (65-100) 07/04/18 07:03 Calcium 8.3 mg/dL (8.4-10.2) L 07/04/18 07:03 Phosphorus 2.10 mg/dL (2.5-4.5) L 07/04/18 07:03 Magnesium 1.40 mg/dL (1.7-2.3) L 07/04/18 07:03 Total Bilirubin 0.40 mg/dL (0.1-1.2) 07/02/18 04:07 AST 18 units/L (5-40) 07/02/18 04:07 ALT 8 units/L (7-56) 07/02/18 04:07 Alkaline Phosphatase 37 units/L (35-129) 07/02/18 04:07 Total Protein 6.6 g/dL (6.3-8.2) 07/02/18 04:07 Albumin 3.1 g/dL (3.9-5) L 07/02/18 04:07 Albumin/Globulin Ratio 0.9 % 07/02/18 04:07 HCG, Qual Negative (Negative) 06/30/18 09:07 Urine Color Yellow (Yellow) 06/30/18 08:37 Urine Turbidity Cloudy (Clear) 06/30/18 08:37 Urine pH 5.0 (5.0-7.0) 06/30/18 08:37 Ur Specific [place] 1.029 (1.003-1.030) 06/30/18 08:37 Urine Protein <15 mg/dl mg/dL (Negative) 06/30/18 08:37 Urine Glucose (UA) Neg mg/dL (Negative) 06/30/18 08:37 Urine Ketones 20 mg/dL (Negative) 06/30/18 08:37 Urine Blood Neg (Negative) 06/30/18 08:37 Urine Nitrite Neg (Negative) 06/30/18 08:37 Urine Bilirubin Neg (Negative) 06/30/18 08:37 Urine Urobilinogen 4.0 mg/dL (<2.0) 06/30/18 08:37 Ur Leukocyte Esterase Tr (Negative) 06/30/18 08:37 Urine WBC (Auto) 5.0 /HPF (0.0-6.0) 06/30/18 08:37 Urine RBC (Auto) 6.0 /HPF (0.0-6.0) 06/30/18 08:37 U Epithel Cells (Auto) 25.0 /HPF (0-13.0) H 06/30/18 08:37 Urine Bacteria (Auto) 1+ /HPF (Negative) 06/30/18 08:37 Urine Mucus 2+ /HPF 06/30/18 08:37 Active Medications - Current Medications Current Medications: Generic Name Dose Route Start Last Admin Trade Name Freq PRN Reason Stop Dose Admin Acetaminophen 650 mg 06/30/18 13:33 Tylenol PO Q4H PRN Pain MILD(1-3)/Fever >100.5/BRANTLEY Albuterol 2.5 mg 06/30/18 13:33 Proventil IH Q4HRT PRN Shortness Of Breath Enoxaparin Sodium 40 mg 06/30/18 22:00 07/06/18 22:33 Lovenox SUB-Q 40 mg QDAY@2200 KARLO Administration Sodium Chloride 1,000 mls @ 125 mls/hr 06/30/18 14:00 07/07/18 09:52 Nacl 0.45% 1000 Ml IV 125 mls/hr DIRECT KARLO Administration Ampicillin Sodium/Sulbactam Sodium 3 gm in 100 mls @ 200 mls/hr 07/04/18 18:00 07/07/18 06:01 Unasyn/Ns 3 Gm/100 Ml IV 200 mls/hr Q6HR KARLO Administration Protocol Metoclopramide HCl 5 mg 07/02/18 17:07 Reglan IV Q8H PRN Nausea And Vomiting Morphine Sulfate 2 mg 06/30/18 13:33 07/04/18 05:54 Morphine IV 2 mg Q4H PRN Administration Pain, Moderate (4-6) Ondansetron HCl 4 mg 06/30/18 13:33 07/04/18 05:51 Zofran IV 4 mg Q8H PRN Administration Nausea And Vomiting Promethazine HCl 12.5 mg 07/03/18 12:25 07/04/18 04:05 Phenergan PO 12.5 mg Q8H PRN Administration Nausea Sodium Chloride 10 ml 06/30/18 22:00 07/06/18 22:34 Sodium Chloride Flush Syringe 10 Ml IV 10 ml BID KARLO Administration Sodium Chloride 10 ml 06/30/18 13:33 Sodium Chloride Flush Syringe 10 Ml IV PRN PRN LINE FLUSH Nutrition/Malnutrition Assess - Dietary Evaluation Nutrition/Malnutrition Findings: Nutrition Notes Start: 07/07/18 10:54 Freq: Status: Active Protocol: Document 07/07/18 10:54 EB (Rec: 07/07/18 11:03 EB [id number]) Co-Sign 07/07/18 10:54 LP Nutrition Notes Need for Assessment generated from: LOS Initial or Follow up Assessment Other Pertinent Diagnosis appendicitis Current Diet [place] Labs/Tests Reviewed Pertinent Medications Reglan Height 5 ft Weight 49.9 kg Usual Body Weight 54.431 kg [place] Body Weight (kg) 45.45 BMI 21.4 Weight change and time frame 10 lbs loss in last 3 months due to appendicitis Weight Status Appropriate Subjective/Other Information Screened for LOS. Pt just finished breakfast at time of visit. Pt states she has had little intake in last 3 months due to worsening appendicitis pain. Pt reports eating 100% of [place] diet if chicken broth is delivered. Pt states she does not like beef broth or the "watery" mashed potatoes and wont eat them if they come. Pt agreed to Ensure clear to supplement her [place] diet. Percent of energy/protein needs met: 43%/69% Burn Absent Trauma Absent Current % PO Fair (50-74%) Minimum of two criteria No #1 Nutrition Diagnosis Inadequate oral intake Etiology appendicitis As Evidenced by Signs and Symptoms on [place] diet and consuming selective items Is patient on ventilator? No Is Patient Ambulatory and/or Out of Bed Yes REE-([place]-ambulatory/OOB) [ 1521.650 NUTR.MSJOOB] Kcal/Kg value to use for calculation 40 Approximate Energy Requirements Using 1996 kcal/Kg Calculation Used for Recommendations Kcal/kg Additional Notes PRO: 0.8-1 g/kg (40-50 g/day) Fluid: 1 mL/kcal Nutrition Intervention Change Diet Order: advance as medically feasible Add Supplement/Snack (indicate name/kcal Ensure Clear daily /protein ) Provides kCal: 240 Provides Protein (gm) 8 Goal #1 Diet advancement Goal #2 Meet at least 75% reilly and pro needs via PO and ONS intake Anticipated Discharge Needs: unable to determine at this time Follow-Up By: 07/11/18 Additional Comments F/u: diet advancement and PO + ONS intakes
--- NOTE | 2018-07-07 12:47 | Progress Note ---
Assessment and Plan Pt status quo. no compl awaiting CT scan today Selected Entries 07/07/18 08:00 Temperature 97.1 F L Respiratory 18 Rate Blood Pressure 119/79 [Left] Objective Vital Signs - 12hr 07/07/18 07/07/18 07/07/18 04:09 08:00 08:01 Temperature 97.4 F L 97.1 F L Pulse Rate 63 79 84 Respiratory 18 18 Rate Blood Pressure 102/40 Blood Pressure 119/79 [Left] O2 Sat by Pulse 98 99 Oximetry - Labs 07/06/18 11:41 07/04/18 07:03
--- NOTE | 2018-07-07 14:05 | Cat Scan Report ---
PROCEDURE: CT ABDOMEN PELVIS W CON TECHNIQUE: Multiple continuous axial images were obtained from the lung bases to the pubic symphysis after administration of IV contrast. Reformatted sagittal and coronal images were available for revi ew . HISTORY: f/u pelvic abscess COMPARISONS: CT of the abdomen and pelvis performed on 06/30/2018 FINDINGS: Lower thorax: Normal. Liver and biliary tree: Normal. Gallbladder: Normal. Spleen: Normal. Pancreas: Normal. Adrenal glands: Normal. Kidneys, ureters, and bladder: Normal. Bowel: No evidence of obstruction. Again seen is a markedly dilated appendix with diffuse thickening of the wall. Peritoneal cavity: Interval placement of surgical drain within the left pelvis. Overall interval reso lution of largest abscess in the left pelvis. There is a residual smaller fluid collection to the lef t of the bladder measuring approximately 1.7 x 1 cm (previously 2.4 x 2.1 cm). Again seen is a 3.5 x 2.4 cm thick-walled cystic structure posterior and to the right of the uterus, that may represent a cyst of the right ovary versus tubo-ovarian abscess or other pelvic abscess. Pelvic Organs: Normal uterus. Vasculature: Normal. Abdominal wall: Midline abdominal katharina are seen. Bones: No suspicious osseous lesions. No acute fracture or dislocation. IMPRESSION: Continued inflammatory change involving the appendix. Interval placement of left-sided pelvic drain with overall resolution of previously seen large absces s in the left pelvis. Smaller residual abscess to the right of the bladder measuring approximately 1.7 x 1 cm. Thick-walled cystic structure posterior to the uterus that is smaller in size as compared to the prev ious study and measures approximately 3.5 x 2.4 cm. Differential diagnosis includes ovarian cyst, tub o-ovarian abscess, or other pelvic abscess. Recommend pelvic ultrasound to evaluate for ovarian patho logy. This document is electronically signed by Ann-Marie Larsen MD., July 07 2018 02:03:34 PM ET
[2018-07-07] MEDS: SODIUM CHLORIDE FLUSH SYRINGE 10 ML IV SCH ×2 (14:33→23:01)
[2018-07-07] MEDS: MORPHINE IV PRN (16:25)
--- NOTE | 2018-07-07 16:33 | Event Note ---
Date: 07/07/18 Removed pigtail drain at bedside. No issues.
--- NOTE | 2018-07-07 20:32 | Ultrasound Report ---
PROCEDURE: US PELVIC COMPLETE TECHNIQUE: Real-time transabdominal sonography in multiple planes of the pelvis was performed. The p elvic structures were not optimally visualized. Transvaginal sonography was then performed to better evaluate the structures and/or abnormalities described below with image documentation. Grayscale, col or flow Doppler imaging, and velocity spectral waveform analysis of the ovaries was employed (duplex imaging). HISTORY: Pelvic fluid collection. Please eval COMPARISONS: None . FINDINGS: UTERUS Size: 6.6 x 3.4 x 4.7 cm. Endometrial thickness: 12.5 mm. Orientation: anteverted. Cervix: Normal. Fibroids/masses: None. RIGHT Ovary: 5.2 x 4.7 x 3.3 cm. Appearance: It demonstrates a cystic lesion measuring 2 cm.. Doppler images: Normal spectral waveforms and color flow images of the arterial inflow and venous out flow.. LEFT Ovary: 3.9 x 2.6 x 2.9 cm. Appearance: It demonstrates a cystic lesion measuring 1.6 cm. Doppler images: Normal spectral waveforms and color flow images of the arterial inflow and venous out flow.. There is a mixed echoic lesion in the right adnexal region laterally measuring 5.8 x 4.1 x 3.9 cm wit h some cystic areas. There is no free fluid. IMPRESSION: Complex mixed echoic lesion right adnexal region most likely represents an inflammatory mass secondary to known appendicitis. Other etiologies such as a tubo-ovarian abscess cannot be exclu ded.. This document is electronically signed by Steve Laguerre MD., July 07 2018 08:30:42 PM ET
[2018-07-07] MEDS: LOVENOX SUB-Q SCH (23:00)
[2018-07-08] MEDS: UNASYN/NS 3 GM/100 ML 3 GM/100 ML BAG IV SCH ×3 (06:49→18:51)
--- NOTE | 2018-07-08 07:35 | Progress Note ---
Assessment and Plan Pt feeling well. sitting up in bed playing with her smart phone. no compl. [place] full liq Abd soft, non tender f/u CT as well as pelvic US completed yesterday. r/o contained ruptured appendiceal abscess vs TOA. 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
--- NOTE | 2018-07-08 10:25 | Progress Note ---
Assessment and Plan Cultures: 07/01/2018 Surgical cultures: E. coli, resistant to FLQ's. A/P: This patient is a 23 year old female with no past medical history, that presents in the ED on 06/30/18 with RLQ abdominal pain with radiation to the umbilicus for the last 5 days, she report pain being constant. Upon further evaluation, patient was found to have appendicitis with rupture and abscess. 1. Suspected ruptured appendix with multiple fluid collections: CT of abdomen and pelvis show large pelvic abscess measuring 7.5 cm. s/p CT guided drainage of pelvic abscess. Surgical cultures grew E. colli, resistant to FLQ's. No fevers. no leukocytosis. Abdominal series within normal limits. CT Abdomen and Pelvis: Continued inflammatory change involving the appendix. Smaller residual abscess to the right of the bladder measuring approximately 1.7 x 1 cm . Thick-walled cystic structure posterior to the uterus that is smaller in size as compared to the previous study and measures approximately 3.5 x 2.4 cm. Differential diagnosis includes ovarian cyst, tubo- ovarian abscess, or other pelvic abscess. Plan: Continue Unasyn 3gms IV every 6 hours, duration dependent on surgical plan f/u [facility] ATTENDANT evaluation Dr. Monroe will be operational risk consultant on Wednesday [phone], Dr. Ron will be making rounds on Wednesday [phone], please call for questions. Deanna Duque NP [facility] M: [id number] O:[phone] Subjective Date of service: 07/08/18 Interval history: Patient seen and examined. Awake. Alert. No acute distress, tolerating clears and solids. Objective - Exam Narrative Exam: Constitutional: Alert, cooperative. No acute distress Head, Ears, Nose: Normocephalic, atraumatic. External ears, nose normal Eyes: Conjunctivae/corneas clear. No icterus. No ptosis. Neck: Supple, no meningeal signs Oral: dentition good, no thrush Cardiovascular: S1, S2 normal. Respiratory: Good air entry, clear to auscultation bilaterally GI: abdominal tenderness, s/p CT guided abscess drainage, +PARUL drain - minimal drainage, Musculoskeletal: No pedal edema, no cyanosis. Skin: No rash or abscess. Hem/Lymphatic: No palpable cervical or supraclavicular nodes. No lymphangitis Psych: Mood ok. Affect flat Neurological: Awake, alert, oriented. - Constitutional Vitals: Vital Signs Temp Pulse Resp BP Pulse Ox 98.1 F 58 L 20 109/47 99 07/08/18 06:00 07/08/18 06:00 07/08/18 06:00 07/08/18 06:00 07/08/18 06:00 Temperature -Last 24 Hours Temperature 98.1 F Temperature 98.2 F Temperature 98.1 F Temperature 98.2 F - Labs CBC & Chem 7: 07/06/18 11:41 07/04/18 07:03
[2018-07-08] MEDS: NACL 0.45% 1000 ML 1,000 ML IV SCH (11:55)
[2018-07-08] MEDS: SODIUM CHLORIDE FLUSH SYRINGE 10 ML IV SCH (11:56)
--- NOTE | 2018-07-08 18:25 | Progress Note ---
Assessment and Plan Assessment and plan: --Sepsis; secondary to ruptured viscus; continue antibiotics per ID Supportive care, cultures positive for Escherichia coli --Possible tubo-ovarian mass; pending CRAWLER CRANE OPERATOR evaluation --Perforated Appendix ; fluid collection/abscess IR s/p CT-guided drainage, removal of 200 mL[left midline fluid collection] This CT-guided aspiration of right lower quadrant collection, scanty purulent material removed Pigtail drain removed, tolerating regular diet --DVT prophylaxis; SCD, Lovenox. Consults and recommendations noted and appreciated Plan of care reviewed with the patient and her nurse Possible discharge pending CRAWLER CRANE OPERATOR evaluation History Interval history: Patient seen and examined this afternoon medical records reviewed Patient feels better no new complaints, tolerating regular diet However questionable tubo-ovarian mass on imaging study Pending CRAWLER CRANE OPERATOR evaluation Patient alert awake oriented 3 Vital signs reviewed and stable Hospitalist Physical - Constitutional Vitals: Temp Pulse Resp BP Pulse Ox 98 F 72 18 141/76 99 07/08/18 15:00 07/08/18 15:00 07/08/18 15:00 07/08/18 15:00 07/08/18 15:00 General appearance: Present: no acute distress, well-nourished - EENT Eyes: Present: PERRL, EOM intact - Neck Neck: Present: supple, normal ROM - Respiratory Respiratory effort: normal Respiratory: bilateral: diminished, negative: rales, rhonchi, wheezing - Cardiovascular Rhythm: regular Heart Sounds: Present: S1 & S2 - Extremities Extremities: no ischemia, No edema - Abdominal General gastrointestinal: soft, non-tender, non-distended, normal bowel sounds - Integumentary Integumentary: Present: clear, warm - Psychiatric Psychiatric: appropriate mood/affect, cooperative - Neurologic Neurologic: CNII-XII intact, moves all extremities Results - Labs CBC & Chem 7: 07/06/18 11:41 07/04/18 07:03 Labs: Laboratory Last Values WBC 5.0 K/mm3 (4.5-11.0) 07/06/18 11:41 RBC 3.25 M/mm3 (3.65-5.03) L 07/06/18 11:41 Hgb 10.4 gm/dl (10.1-14.3) 07/06/18 11:41 Hct 30.6 % (30.3-42.9) 07/06/18 11:41 MCV 94 fl (79-97) 07/06/18 11:41 MCH 32 pg (28-32) 07/06/18 11:41 MCHC 34 % (30-34) 07/06/18 11:41 RDW 13.3 % (13.2-15.2) 07/06/18 11:41 Plt Count 573 K/mm3 (140-440) H 07/06/18 11:41 Lymph % (Auto) 39.4 % (13.4-35.0) H 07/06/18 11:41 Emanuel % (Auto) 12.2 % (0.0-7.3) H 07/06/18 11:41 Eos % (Auto) 6.0 % (0.0-4.3) H 07/06/18 11:41 Baso % (Auto) 0.6 % (0.0-1.8) 07/06/18 11:41 Lymph # 2.0 K/mm3 (1.2-5.4) 07/06/18 11:41 Emanuel # 0.6 K/mm3 (0.0-0.8) 07/06/18 11:41 Eos # 0.3 K/mm3 (0.0-0.4) 07/06/18 11:41 Baso # 0.0 K/mm3 (0.0-0.1) 07/06/18 11:41 Seg Neutrophils % 41.8 % (40.0-70.0) 07/06/18 11:41 Seg Neutrophils # 2.1 K/mm3 (1.8-7.7) 07/06/18 11:41 Sodium 140 mmol/L (137-145) 07/04/18 07:03 Potassium 3.8 mmol/L (3.6-5.0) 07/04/18 07:03 Chloride 107.3 mmol/L (98-107) H 07/04/18 07:03 Carbon Dioxide 21 mmol/L (22-30) L 07/04/18 07:03 Anion Gap 16 mmol/L 07/04/18 07:03 BUN 2 mg/dL (7-17) L 07/04/18 07:03 Creatinine 0.6 mg/dL (0.7-1.2) L 07/04/18 07:03 Estimated GFR > 60 ml/min 07/04/18 07:03 BUN/Creatinine Ratio 3 % 07/04/18 07:03 Glucose 88 mg/dL (65-100) 07/04/18 07:03 Calcium 8.3 mg/dL (8.4-10.2) L 07/04/18 07:03 Phosphorus 2.10 mg/dL (2.5-4.5) L 07/04/18 07:03 Magnesium 1.40 mg/dL (1.7-2.3) L 07/04/18 07:03 Total Bilirubin 0.40 mg/dL (0.1-1.2) 07/02/18 04:07 AST 18 units/L (5-40) 07/02/18 04:07 ALT 8 units/L (7-56) 07/02/18 04:07 Alkaline Phosphatase 37 units/L (35-129) 07/02/18 04:07 Total Protein 6.6 g/dL (6.3-8.2) 07/02/18 04:07 Albumin 3.1 g/dL (3.9-5) L 07/02/18 04:07 Albumin/Globulin Ratio 0.9 % 07/02/18 04:07 HCG, Qual Negative (Negative) 06/30/18 09:07 Urine Color Yellow (Yellow) 06/30/18 08:37 Urine Turbidity Cloudy (Clear) 06/30/18 08:37 Urine pH 5.0 (5.0-7.0) 06/30/18 08:37 Ur Specific [place] 1.029 (1.003-1.030) 06/30/18 08:37 Urine Protein <15 mg/dl mg/dL (Negative) 06/30/18 08:37 Urine Glucose (UA) Neg mg/dL (Negative) 06/30/18 08:37 Urine Ketones 20 mg/dL (Negative) 06/30/18 08:37 Urine Blood Neg (Negative) 06/30/18 08:37 Urine Nitrite Neg (Negative) 06/30/18 08:37 Urine Bilirubin Neg (Negative) 06/30/18 08:37 Urine Urobilinogen 4.0 mg/dL (<2.0) 06/30/18 08:37 Ur Leukocyte Esterase Tr (Negative) 06/30/18 08:37 Urine WBC (Auto) 5.0 /HPF (0.0-6.0) 06/30/18 08:37 Urine RBC (Auto) 6.0 /HPF (0.0-6.0) 06/30/18 08:37 U Epithel Cells (Auto) 25.0 /HPF (0-13.0) H 06/30/18 08:37 Urine Bacteria (Auto) 1+ /HPF (Negative) 06/30/18 08:37 Urine Mucus 2+ /HPF 06/30/18 08:37 Active Medications - Current Medications Current Medications: Generic Name Dose Route Start Last Admin Trade Name Freq PRN Reason Stop Dose Admin Acetaminophen 650 mg 06/30/18 13:33 Tylenol PO Q4H PRN Pain MILD(1-3)/Fever >100.5/BRANTLEY Albuterol 2.5 mg 06/30/18 13:33 Proventil IH Q4HRT PRN Shortness Of Breath Enoxaparin Sodium 40 mg 06/30/18 22:00 07/07/18 23:00 Lovenox SUB-Q 40 mg QDAY@2200 KARLO Administration Sodium Chloride 1,000 mls @ 125 mls/hr 06/30/18 14:00 07/08/18 11:55 Nacl 0.45% 1000 Ml IV 125 mls/hr DIRECT KARLO Administration Ampicillin Sodium/Sulbactam Sodium 3 gm in 100 mls @ 200 mls/hr 07/04/18 18:00 07/08/18 11:56 Unasyn/Ns 3 Gm/100 Ml IV 200 mls/hr Q6HR KARLO Administration Protocol Metoclopramide HCl 5 mg 07/02/18 17:07 Reglan IV Q8H PRN Nausea And Vomiting Morphine Sulfate 2 mg 06/30/18 13:33 07/07/18 16:25 Morphine IV 2 mg Q4H PRN Administration Pain, Moderate (4-6) Ondansetron HCl 4 mg 06/30/18 13:33 07/04/18 05:51 Zofran IV 4 mg Q8H PRN Administration Nausea And Vomiting Promethazine HCl 12.5 mg 07/03/18 12:25 07/04/18 04:05 Phenergan PO 12.5 mg Q8H PRN Administration Nausea Sodium Chloride 10 ml 06/30/18 22:00 07/08/18 11:56 Sodium Chloride Flush Syringe 10 Ml IV 10 ml BID KARLO Administration Sodium Chloride 10 ml 06/30/18 13:33 Sodium Chloride Flush Syringe 10 Ml IV PRN PRN LINE FLUSH Nutrition/Malnutrition Assess - Dietary Evaluation Nutrition/Malnutrition Findings: Nutrition Notes Start: 07/07/18 10:54 Freq: Status: Active Protocol: Document 07/08/18 10:16 MADDIE (Rec: 07/08/18 10:17 MADDIE [id number] [email or web address]) Nutrition Notes Initial or Follow up Brief Note Subjective/Other Information Diet to be advanced to Regular this am. Nutrition Intervention Follow-Up By: 07/11/18 Additional Comments F/U: PO tolerance, intakes ( meals/ONS)
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
[2018-07-08] MEDS: LOVENOX SUB-Q SCH (22:02)
[2018-07-09] MEDS: UNASYN/NS 3 GM/100 ML 3 GM/100 ML BAG IV SCH ×4 (00:33→17:00)
[2018-07-09] MEDS: NACL 0.45% 1000 ML 1,000 ML IV SCH ×3 (00:33→23:54)
[2018-07-09] MEDS: SODIUM CHLORIDE FLUSH SYRINGE 10 ML IV SCH ×3 (00:36→22:52)
--- NOTE | 2018-07-09 10:31 | Discharge Summary ---
Providers - Providers Date of Admission: 06/30/18 15:46 Date of discharge: 07/10/18 Attending physician: SUH DAHL 06/30/18 13:02 Consult to Physician [CONS] Urgent Comment: Consulting Provider: MAYELA MCKEON Physician Instructions: Reason For Exam: acute appendicitis with ruture 06/30/18 13:37 Consult to Interventional Radiology [CONS] Routine Consulting Provider: JEREMIAS ROSS Reason For Exam: Appendicitis with abscess for drainage Place consult to:: VANDANA Notified:: YES Phone number called:: [phone] Time called:: 18:00 Comment:: DR ROSS IS NO LONGER COVERING [facility] 06/30/18 20:23 Consult to Physician [CONS] Routine Comment: Consulting Provider: LATONYA BHAGAT Physician Instructions: Reason For Exam: pelvic abscess 07/08/18 07:24 Consult to Physician [CONS] Routine Comment: Consulting Provider: ROWENA GARNER Physician Instructions: Reason For Exam: r/o TOA Primary care physician: [facility], Hospitalization Reason for admission: abdominal pain/ruptured appendix Condition: Stable Pertinent studies: CT abdomen and pelvis; 06/30/2018 CT guided biopsy and drainage CT abdomen and pelvis 07/07/2018 Pelvic ultrasound Chest and abdominal x-ray Procedures: Ruptured appendix with multiple fluid collections; CT-guided drainage of the left midline fluid collection CT-guided aspiration of the right lower quadrant collection Hospital course: 39-year-old female patient with no significant past medical history is admitted through emergency room with abdominal pain; Patient was extensively evaluated in the ED noted to have a ruptured appendix An abdominal abscess, patient was evaluated by surgery, and interventional radiologist And underwent CT-guided drainage and pigtail placement Patient was nothing by mouth status, received IV antibiotics, ID has evaluated and optimize the medication His repeat CT abdomen showed some tubal ovarian mass, patient has evaluation by ULTRA SOUND TECHNICIAN Requested STD panel of tests, and recommend 2 weeks of Flagyl and doxycycline Advised to follow with them in 1 week. Patient is comfortable no new complaints Tolerates a regular diet, ambulatory, hemodynamically and clinically stable at discharge Surgery, ID and ULTRA SOUND TECHNICIAN cleared for discharge and follow up in the office per schedule Discharge diagnosis: --Sepsis; secondary to ruptured viscus; continue antibiotics per ID Supportive care, cultures positive for Escherichia coli --Possible tubo-ovarian mass; ULTRA SOUND TECHNICIAN evaluated, recommend 2 weeks of antibiotics Follow-up with them the office in 7 days, cleared for discharge --Perforated Appendix ; fluid collection/abscess IR s/p CT-guided drainage, removal of 200 mL[left midline fluid collection] This CT-guided aspiration of right lower quadrant collection, scanty purulent material removed Pigtail drain removed, tolerating regular diet --DVT prophylaxis; SCD, Lovenox. Consults and recommendations noted and appreciated Plan of care reviewed with the patient and her nurse ULTRA SOUND TECHNICIAN evaluated and cleared for discharge on antibiotics Surgery, ULTRA SOUND TECHNICIAN and ID cleared for discharge and follow up in the office per scheduled ID recommended 1 g IV Rocephin 1 dose prior to discharge today Disposition: DC- TO HOME OR SELFCARE Time spent for discharge: 32 min Core Measure Documentation - Palliative Care Palliative Care/ Comfort Measures: Not Applicable - Core Measures Any of the following diagnoses?: none Exam - Constitutional Vitals: Temp Pulse Resp BP Pulse Ox 98.1 F 60 16 106/60 100 07/09/18 07:10 07/09/18 07:10 07/09/18 07:10 07/09/18 07:10 07/09/18 04:13 General appearance: Present: no acute distress, well-nourished - EENT Eyes: Present: PERRL, EOM intact - Neck Neck: Present: supple, normal ROM - Respiratory Respiratory effort: normal Respiratory: bilateral: diminished, negative: rales, rhonchi, wheezing - Cardiovascular Rhythm: regular Heart Sounds: Present: S1 & S2 - Extremities Extremities: no ischemia, No edema - Abdominal General gastrointestinal: Present: soft, non-tender, non-distended, normal bowel sounds - Integumentary Integumentary: Present: clear, warm - Musculoskeletal Musculoskeletal: strength equal bilaterally, generalized weakness - Psychiatric Psychiatric: appropriate mood/affect, cooperative - Neurologic Neurologic: CNII-XII intact, moves all extremities Plan Activity: advance as tolerated Diet: regular Additional Instructions: follow-up within 7 days at [facility] or [place] . Follow up with: MAYELA MCKEON MD [Staff Physician] - 7 Days TRESSA EVANGELISTA MD [Staff Physician] - 7 Days [facility] MD KIERSTEN [Primary Care Provider] - 7 Days SHAY SONI MD [Staff Physician] - 14 Days Prescriptions: metroNIDAZOLE [Flagyl] 500 mg PO Q12HR 14 Days #28 tab Doxycycline [Vibramycin CAP] 100 mg PO Q12HR 14 Days #28 capsule
--- NOTE | 2018-07-09 12:00 | Progress Note ---
Assessment and Plan Assessment and plan: --Sepsis; secondary to ruptured viscus; continue antibiotics per ID Supportive care, cultures positive for Escherichia coli --Possible tubo-ovarian mass; LINER WORKER evaluated, recommend 2 weeks of antibiotics Follow-up with them the office in 7 days, cleared for discharge --Perforated Appendix ; fluid collection/abscess IR s/p CT-guided drainage, removal of 200 mL[left midline fluid collection] This CT-guided aspiration of right lower quadrant collection, scanty purulent material removed Pigtail drain removed, tolerating regular diet --DVT prophylaxis; SCD, Lovenox. Consults and recommendations noted and appreciated Plan of care reviewed with the patient and her nurse LINER WORKER evaluated and cleared for discharge on antibiotics Surgery since patient is not stable and ready for discharge Hold discharge continue current management History Interval history: Patient seen and examined medical records reviewed Patient feels better tolerating regular food No new complaints Vital signs reviewed Hospitalist Physical - Constitutional Vitals: Temp Pulse Resp BP Pulse Ox 98.1 F 60 16 106/60 100 07/09/18 07:10 07/09/18 07:10 07/09/18 07:10 07/09/18 07:10 07/09/18 04:13 General appearance: Present: no acute distress, well-nourished - EENT Eyes: Present: PERRL, EOM intact - Neck Neck: Present: supple, normal ROM - Respiratory Respiratory effort: normal Respiratory: bilateral: diminished, negative: rales, rhonchi, wheezing - Cardiovascular Rhythm: regular Heart Sounds: Present: S1 & S2 - Extremities Extremities: no ischemia, No edema - Abdominal General gastrointestinal: soft, non-tender, non-distended, normal bowel sounds - Integumentary Integumentary: Present: clear, warm - Psychiatric Psychiatric: appropriate mood/affect, cooperative - Neurologic Neurologic: CNII-XII intact, moves all extremities Results - Labs CBC & Chem 7: 07/06/18 11:41 07/04/18 07:03 Labs: Laboratory Last Values WBC 5.0 K/mm3 (4.5-11.0) 07/06/18 11:41 RBC 3.25 M/mm3 (3.65-5.03) L 07/06/18 11:41 Hgb 10.4 gm/dl (10.1-14.3) 07/06/18 11:41 Hct 30.6 % (30.3-42.9) 07/06/18 11:41 MCV 94 fl (79-97) 07/06/18 11:41 MCH 32 pg (28-32) 07/06/18 11:41 MCHC 34 % (30-34) 07/06/18 11:41 RDW 13.3 % (13.2-15.2) 07/06/18 11:41 Plt Count 573 K/mm3 (140-440) H 07/06/18 11:41 Lymph % (Auto) 39.4 % (13.4-35.0) H 07/06/18 11:41 [place] % (Auto) 12.2 % (0.0-7.3) H 07/06/18 11:41 Eos % (Auto) 6.0 % (0.0-4.3) H 07/06/18 11:41 Baso % (Auto) 0.6 % (0.0-1.8) 07/06/18 11:41 Lymph # 2.0 K/mm3 (1.2-5.4) 07/06/18 11:41 [place] # 0.6 K/mm3 (0.0-0.8) 07/06/18 11:41 Eos # 0.3 K/mm3 (0.0-0.4) 07/06/18 11:41 Baso # 0.0 K/mm3 (0.0-0.1) 07/06/18 11:41 Seg Neutrophils % 41.8 % (40.0-70.0) 07/06/18 11:41 Seg Neutrophils # 2.1 K/mm3 (1.8-7.7) 07/06/18 11:41 Sodium 140 mmol/L (137-145) 07/04/18 07:03 Potassium 3.8 mmol/L (3.6-5.0) 07/04/18 07:03 Chloride 107.3 mmol/L (98-107) H 07/04/18 07:03 Carbon Dioxide 21 mmol/L (22-30) L 07/04/18 07:03 Anion Gap 16 mmol/L 07/04/18 07:03 BUN 2 mg/dL (7-17) L 07/04/18 07:03 Creatinine 0.6 mg/dL (0.7-1.2) L 07/04/18 07:03 Estimated GFR > 60 ml/min 07/04/18 07:03 BUN/Creatinine Ratio 3 % 07/04/18 07:03 Glucose 88 mg/dL (65-100) 07/04/18 07:03 Calcium 8.3 mg/dL (8.4-10.2) L 07/04/18 07:03 Phosphorus 2.10 mg/dL (2.5-4.5) L 07/04/18 07:03 Magnesium 1.40 mg/dL (1.7-2.3) L 07/04/18 07:03 Total Bilirubin 0.40 mg/dL (0.1-1.2) 07/02/18 04:07 AST 18 units/L (5-40) 07/02/18 04:07 ALT 8 units/L (7-56) 07/02/18 04:07 Alkaline Phosphatase 37 units/L (35-129) 07/02/18 04:07 Total Protein 6.6 g/dL (6.3-8.2) 07/02/18 04:07 Albumin 3.1 g/dL (3.9-5) L 07/02/18 04:07 Albumin/Globulin Ratio 0.9 % 07/02/18 04:07 HCG, Qual Negative (Negative) 06/30/18 09:07 Urine Color Yellow (Yellow) 06/30/18 08:37 Urine Turbidity Cloudy (Clear) 06/30/18 08:37 Urine pH 5.0 (5.0-7.0) 06/30/18 08:37 Ur Specific [place] 1.029 (1.003-1.030) 06/30/18 08:37 Urine Protein <15 mg/dl mg/dL (Negative) 06/30/18 08:37 Urine Glucose (UA) Neg mg/dL (Negative) 06/30/18 08:37 Urine Ketones 20 mg/dL (Negative) 06/30/18 08:37 Urine Blood Neg (Negative) 06/30/18 08:37 Urine Nitrite Neg (Negative) 06/30/18 08:37 Urine Bilirubin Neg (Negative) 06/30/18 08:37 Urine Urobilinogen 4.0 mg/dL (<2.0) 06/30/18 08:37 Ur Leukocyte Esterase Tr (Negative) 06/30/18 08:37 Urine WBC (Auto) 5.0 /HPF (0.0-6.0) 06/30/18 08:37 Urine RBC (Auto) 6.0 /HPF (0.0-6.0) 06/30/18 08:37 U Epithel Cells (Auto) 25.0 /HPF (0-13.0) H 06/30/18 08:37 Urine Bacteria (Auto) 1+ /HPF (Negative) 06/30/18 08:37 Urine Mucus 2+ /HPF 06/30/18 08:37 Hep Bs Antigen Non-reactive (Negative) 07/08/18 21:15 Hepatitis C Antibody Non-reactive (NonReactive) 07/08/18 21:15 HIV 1&2 Antibody Rapid Non react (Non React) 07/08/18 21:12 HIV P24 Antigen Non react (Non React) 07/08/18 21:12 Active Medications - Current Medications Current Medications: Generic Name Dose Route Start Last Admin Trade Name Freq PRN Reason Stop Dose Admin Acetaminophen 650 mg 06/30/18 13:33 Tylenol PO Q4H PRN Pain MILD(1-3)/Fever >100.5/BRANTLEY Albuterol 2.5 mg 06/30/18 13:33 Proventil IH Q4HRT PRN Shortness Of Breath Enoxaparin Sodium 40 mg 06/30/18 22:00 07/08/18 22:02 Lovenox SUB-Q 40 mg QDAY@2200 KARLO Administration Sodium Chloride 1,000 mls @ 125 mls/hr 06/30/18 14:00 07/09/18 00:33 Nacl 0.45% 1000 Ml IV 125 mls/hr DIRECT KARLO Administration Ampicillin Sodium/Sulbactam Sodium 3 gm in 100 mls @ 200 mls/hr 07/04/18 18:00 07/09/18 07:24 Unasyn/Ns 3 Gm/100 Ml IV 200 mls/hr Q6HR KARLO Administration Protocol Metoclopramide HCl 5 mg 07/02/18 17:07 Reglan IV Q8H PRN Nausea And Vomiting Morphine Sulfate 2 mg 06/30/18 13:33 07/07/18 16:25 Morphine IV 2 mg Q4H PRN Administration Pain, Moderate (4-6) Ondansetron HCl 4 mg 06/30/18 13:33 07/04/18 05:51 Zofran IV 4 mg Q8H PRN Administration Nausea And Vomiting Promethazine HCl 12.5 mg 07/03/18 12:25 07/04/18 04:05 Phenergan PO 12.5 mg Q8H PRN Administration Nausea Sodium Chloride 10 ml 06/30/18 22:00 07/09/18 00:36 Sodium Chloride Flush Syringe 10 Ml IV 10 ml BID KARLO Administration Sodium Chloride 10 ml 06/30/18 13:33 Sodium Chloride Flush Syringe 10 Ml IV PRN PRN LINE FLUSH Nutrition/Malnutrition Assess - Dietary Evaluation Nutrition/Malnutrition Findings: Nutrition Notes Start: 07/07/18 10:54 Freq: Status: Active Protocol: Document 07/08/18 10:16 MADDIE (Rec: 07/08/18 10:17 MADDIE [id number] [email or web address]) Nutrition Notes Initial or Follow up Brief Note Subjective/Other Information Diet to be advanced to Regular this am. Nutrition Intervention Follow-Up By: 07/11/18 Additional Comments F/U: PO tolerance, intakes ( meals/ONS)
[2018-07-09] MEDS: FLAGYL PO SCH ×2 (14:35→22:50)
[2018-07-09] MEDS: VIBRAMYCIN PO SCH ×2 (14:35→22:51)
--- NOTE | 2018-07-09 21:40 | Progress Note ---
Assessment and Plan Pt feeling well without compl. layton solid diet. Abd soft, non tender. director business systems eval appreciated. imp - ruptured appendiceal abscess vs TOA may certainly consider pt for d/c. but a couple of points to consider CT still shows a R lower pelvic abscess that has shrunk to approx 40% of original size but still present. However current antibiotic Rx appears to be working well. Contract Programmer recommends a 14 day Rx of Doxycycline and Flagy to cover for possible TOA Cults originally obtained where from the fluid/hematoma collection of the L adne xal region. Not clear if this fluid collection was contiguous with the R pelic abscess or not. Either way, the R sided abscess is responding well to Rx So rec - which antibiotic regimen and for how long Rx should be should be determined between ID and director business systems If pt d/c'ed, will need to see in office next Th. Also pt will need f/u with director business systems Will schedule f/u CT abd & pelivis in I wk as out pt surgically stable Selected Entries 07/09/18 19:15 Temperature 98.2 F Respiratory 18 Rate O2 Sat by Pulse 99 Oximetry Blood Pressure 115/83 Objective Vital Signs - 12hr 07/09/18 07/09/18 07/09/18 12:10 15:55 19:15 Temperature 99.1 F 98.9 F 98.2 F Pulse Rate 67 75 84 Respiratory 18 18 18 Rate Blood Pressure 115/83 Blood Pressure 121/86 114/49 [Left] O2 Sat by Pulse 100 99 Oximetry - Labs 07/06/18 11:41 07/04/18 07:03
[2018-07-09] MEDS: LOVENOX SUB-Q SCH (22:52)
[2018-07-10] MEDS: UNASYN/NS 3 GM/100 ML 3 GM/100 ML BAG IV SCH ×3 (00:07→13:00)
[2018-07-10] MEDS: FLAGYL PO SCH ×2 (05:34→13:00)
[2018-07-10] MEDS: MORPHINE IV PRN (10:08)
[2018-07-10] MEDS: VIBRAMYCIN PO SCH (10:08)
[2018-07-10] MEDS: SODIUM CHLORIDE FLUSH SYRINGE 10 ML IV SCH (10:09)
[2018-07-10] MEDS ORDERED: ROCEPHIN/NS 1 GM/50 ML 1 GM/50 ML BAG IV ONE (14:30)
[2018-07-10 16:53] VITALS: BP 120/80
--- NOTE | 2018-08-18 16:18 | Cat Scan Report ---
EXAM: CT guided 8 [place] drain placement into a left pelvic fluid collection CT-guided aspiration of a right pelvic fluid collection CLINICAL INDICATION: abdominal pain with ruptured appendix DATE: 07/01/18 SALES ACCOUNT SPECIALIST: JEREMIAS RICKS MD MEDICATIONS: Conscious sedation using Versed and fentanyl was performed under guidance of radiologic nursing. Continuous cardiopulmonary monitoring was utilized. PROCEDURE: Following an explanation of the risks, benefits and alternatives; written informed consent was obtained. The patient was brought to the CT suite and placed in the supine position on the CT table. Computer Support Specialist CT was performed of the pelvis. After determining the appropriate site, the skin was infiltrated with lidocaine and a finder needle was placed. Intermittent CT was performed until the desired position was identified. The 18 gauge trocar needle was inserted into the left largest pelvic fluid collection . Aspiration was performed and sent to the lab for analysis. J wire was then advanced through the needle and into the collection. The needle was exchanged for multiple dilators that were used to serially dilate over the wire. A 8 Fr APD drain was advanced over the wire and metal stiffener. The metal stiffener and wire were removed. CT scanning was performed. The pigtail was secured and aspirated until no more material could be aspirated. The the smaller right-sided pelvic fluid collection was then targeted. After determining the appropriate site, the skin was infiltrated with lidocaine and a finder needle was placed. Intermittent CT was performed until the desired position was identified. The 18 gauge needle was inserted into the right pelvic collection and needle was aspirated with some purulent fluid removed. Approximately less than 5 cc of fluid. Sterile bandage was applied. The patient tolerated the procedure well. There were no immediate postprocedural complications. FINDINGS: 1. Initial CT demonstrates multiple pelvic fluid collections and an abnormal appendix as noted on the diagnostic CT scan. There is a satisfactory window for CT drainage. 2. Intermittent CT demonstrates the 18 gauge needle was placed in the largest left pelvic fluid collection. 3. Wire is coiled in the largest left pelvic fluid collection. 4. Final CT documents placement of a 8 Fr drain in the largest left pelvic fluid collection. 5. Intermittent CT demonstrates the 18-gauge needle was placed in a small right pelvic fluid collection. IMPRESSION: Successful CT guided 8 [place] left pelvic fluid collection drain placement. Successful CT-guided aspiration of a small right pelvic fluid collection.
== END 2018-07-10 17:35 | disposition home or self-care (01) | DRG 871 ==
LOC: ED 08:30 → 3B-SURG 15:46
PROVIDERS: ADMIT Internal Medicine; ATTEND Internal Medicine
PROC: 0W9G3ZZ Drainage of Peritoneal Cavity, Percutaneous Approach (ICD-10-PCS; principal; 2018-07-01)
DX: A41.51 Sepsis due to Escherichia coli [E. coli] (principal); K35.33 Acute appendicitis with perforation, localized peritonitis, and gangrene, with abscess; L02.211 Cutaneous abscess of abdominal wall; N83.9 Noninflammatory disorder of ovary, fallopian tube and broad ligament, unspecified; N73.9 Female pelvic inflammatory disease, unspecified; Z91.013 Allergy to seafood
CPT/HCPCS: 10160; 36415; 74022; 74177; 76856; 77012; 80048; 80053; 81001; 83735; 84100; 84703; 85025; 86592; 86706; 86803; 87076; 87116; 87186; 87591; 87806; 96374; 96375; 99291; G0378; C1769; J0295; J0696; J1650; J1885; J2250; J2270; J2405; J2543; J3010; J3475; J7030; Q0169; Q9967

== ENCOUNTER 2018-09-01 13:05 | Emergency (ER) | payer SELFPAY | END 2018-09-01 14:07 | disposition left against medical advice (07) | LOC: ED 13:05 | DX: R10.2 Pelvic and perineal pain (principal); Z53.21 Procedure and treatment not carried out due to patient leaving prior to being seen by health care provider ==

== ENCOUNTER 2020-02-22 21:43 | Emergency (ER) | payer SELFPAY ==
[2020-02-22 23:35] LABS: Bilirubin,Urine NEG (Negative); Blood,Urine NEG (Negative); Color,Urine Yellow (Yellow); Mucus,Urine FEW /HPF; Protein,Urine <15 mg/dL mg/dL (Negative); Urobilinogen,Urine < 2.0 mg/dL (<2.0)
[2020-02-22 23:50] LABS: HCG Qualitative,Urine Negative (Negative)
[2020-02-23] MEDS ORDERED: HYDROcodone/ACETAMINOPHEN 5-325 MG TAB PO STA (00:17)
--- NOTE | 2020-02-23 00:24 | Emergency Department Report ---
ED Female HPI - General Chief complaint: Abdominal Pain Stated complaint: OVARIAN CYST Time Seen by Provider: 02/22/20 23:33 Source: patient Mode of arrival: Ambulatory Limitations: No Limitations - History of Present Illness Initial comments: 24-year-old F [place] female with a chronic long history of ovarian cysts presents emergency department complaining of pelvic pain worse with palpation, ambulating, urination. Ports no fever, chills, sweats, no hematuria, no dysuria no increased urinary frequency no increased urinary urgency ports no nausea, no vomiting.. She was diagnosed with ovarian cyst successfully fused ago states they will work of both size and have increased to more days a baseball size but not yet follow-up with [facility] to get them removed. She has been seen at multiple hospitals in recent and received multiple ultrasounds and presents here today seeking pain control. States she is out of her hydrocodone at home which she normally utilizes for her pain control. Location: suprapubic Radiation: suprapubic Severity: mild, moderate Quality: dull Consistency: constant Improves with: none Worsens with: none Are you Now?: No - Related Data Previous Rx's Medication Instructions Recorded Last Taken Type DOXYCYCLINE Hyclate [Vibramycin 100 mg PO Q12HR 14 Days #28 capsule 07/08/18 Unknown Rx CAP] metroNIDAZOLE [Flagyl] 500 mg PO Q12HR 14 Days #28 tab 07/08/18 Unknown Rx oxyCODONE /ACETAMINOPHEN [Percocet 1 tab PO BID PRN #6 tablet 07/10/18 Unknown Rx 5/325] Ketorolac [Toradol] 10 mg PO Q6H PRN #14 tablet 02/23/20 Unknown Rx Allergies Allergy/AdvReac Type Severity Reaction Status Date / Time Fish Containing Products Allergy Anaphylaxis Verified 09/01/18 13:06 multiple Allergy Anaphylaxis Uncoded 03/17/16 15:31 oranges Allergy Anaphylaxis Uncoded 03/17/16 15:32 seafood Allergy Anaphylaxis Uncoded 03/17/16 15:31 ED Review of Systems ROS: Stated complaint: OVARIAN CYST Other details as noted in HPI Comment: All other systems reviewed and negative ED Past Medical Hx - Past Medical History Previous Medical History?: Yes Additional medical history: Bilateral Ovarian Cysts - Surgical History Past Surgical History?: Yes Hx Breast Surgery: Yes - Social History Smoking Status: Current Every Day Smoker Substance Use Type: None - Medications Home Medications: Home Medications Medication Instructions Recorded Confirmed Last Taken Type DOXYCYCLINE Hyclate [Vibramycin 100 mg PO Q12HR 14 Days #28 capsule 07/08/18 Unknown Rx CAP] metroNIDAZOLE [Flagyl] 500 mg PO Q12HR 14 Days #28 tab 07/08/18 Unknown Rx oxyCODONE /ACETAMINOPHEN [Percocet 1 tab PO BID PRN #6 tablet 07/10/18 Unknown Rx 5/325] Ketorolac [Toradol] 10 mg PO Q6H PRN #14 tablet 02/23/20 Unknown Rx ED Physical Exam - General Limitations: No Limitations General appearance: alert, in no apparent distress - Head Head exam: Present: atraumatic, normocephalic - Eye Eye exam: Present: normal appearance, PERRL, EOMI Pupils: Present: normal accommodation - ENT ENT exam: Present: normal exam, mucous membranes moist, TM's normal bilaterally - Neck Neck exam: Present: normal inspection, full ROM - Respiratory Respiratory exam: Present: normal lung sounds bilaterally. Absent: respiratory distress, wheezes, rales, chest wall tenderness, accessory muscle use - Cardiovascular Cardiovascular Exam: Present: regular rate, normal rhythm. Absent: systolic murmur, diastolic murmur, rubs, gallop - GI/Abdominal GI/Abdominal exam: Present: soft, normal bowel sounds - Extremities Exam Extremities exam: Present: normal inspection - Back Exam Back exam: Present: normal inspection. Absent: CVA tenderness (R), CVA tenderness (L) - Neurological Exam Neurological exam: Present: alert, oriented X3 - Psychiatric Psychiatric exam: Present: normal affect, normal mood - Skin Skin exam: Present: warm, dry, intact, normal color. Absent: rash ED Course Vital Signs 02/22/20 22:28 Temperature 97.9 F Pulse Rate 94 H Respiratory 17 Rate Blood Pressure 132/86 O2 Sat by Pulse 100 Oximetry ED Medical Decision Making - Lab Data Result diagrams: 02/23/20 01:19 02/23/20 01:19 - Medical Decision Making The patient is oriented to person, place, and time, has the capacity to make decisions regarding the medical care offered. The patient speaks coherently and exhibits no evidence of having an altered level of consciousness or alcohol or drug intoxication to a point that would impair judgment. They respond knowingly to questions about recommended treatment and alternate treatments including no further testing or treatment; participate in diagnostic and treatment decisions by means of rational thought processes; and understand the items of minimum basic medical treatment information with respect to that treatment (the nature and seriousness of the illness, the nature of the treatment, the probable degree and duration of any benefits and risks of any medical intervention that is being recommended, and the consequences of lack of treatment, and the nature, risks, and benefits of any reasonable alternatives). I have reviewed the relevant issues with the patient. They are aware of the suspected diagnosis suggested by screening exam, [_ovarian cyst/torsion], based upon the initiated medical screening exam. The patient acknowledges understanding of the reasons for recommendations regarding medical treatment, medical testing, and further monitoring and observation. The recommended medical care being refused has been discussed with the patient and is [_]. The risks of refusing recommended care that were disclosed and acknowledged by the patient are loss of current lifestyle, permanent mental impairment, and . The patient understands the relevant information of the nature of their medical condition, as well as the risks, benefits, and treatment alternatives (including non-treatment), consequences of refusing care, and can competently communicate a rational explanation about their choice of care options. [Discharge instructions were provided to the patient.] The patient understands they are welcome to return to the hospital at any time to receive the recommended care or any other care at any time, regardless of their ability to pay for such care. Critical care attestation.: If time is entered above; I have spent that time in minutes in the direct care of this critically ill patient, excluding procedure time. ED Disposition Clinical Impression: Ovarian cyst Disposition: DC-01 TO HOME OR SELFCARE Is pt being admited?: No Does the pt Need Aspirin: No Condition: Stable Instructions: Ovarian Cyst, Abdominal Pain (ED) Additional Instructions: Labs and vital signs are normal. Sure to follow-up with [facility] should you begin to experience any fever, bleeding or worsening pain or any other symptoms to suggest that your condition is worsening Prescriptions: Ketorolac [Toradol] 10 mg PO Q6H PRN #14 tablet PRN Reason: Pain Referrals: [facility] [Provider Group] - 3-5 Days [facility] [Provider Group] - 3-5 Days [facility], [Primary Care Provider] - 3-5 Days
--- NOTE | 2020-02-23 00:54 | Ultrasound Report ---
ULTRASOUND PELVIS, COMPLETE INDICATION: Severe pelvic pain COMPARISON: Ultrasound pelvis 07/07/2018.. TECHNIQUE: Transabdominal imaging was performed. FINDINGS: Uterus: No significant abnormality. Endometrial echo complex measures 10 mm. There are somewhat complex heterogeneously hypoechoic collections within the right hemipelvis. This m ay be one large loculated collection or several separate collections. Ovaries are not visualized. IMPRESSION: 1. There are 2 complex collections in the right pelvis/right adnexa. The larger measures approximatel y 10 x 9 x 7 cm, the smaller measures approximately 5 x 4 x 6 cm. I do not see definite communication between these. Imaging appearance is nonspecific. Tubo-ovarian abscess could have this appearance. T he ovaries themselves are not visualized on transabdominal imaging. 2. No uterine abnormalities are seen. Signer Name: Ric Cornell MD Signed: 02/23/2020 12:49 AM Workstation Name: [id number]
[2020-02-23] MEDS ORDERED: KETOROLAC 60 MG/2 ML INJ IM STA (01:19)
[2020-02-23 02:08] LABS: Blood Urea Nitrogen 9 mg/dL (7-17); Calcium 9.9 mg/dL (8.4-10.2); Hemolysis Index 1
[2020-02-23 02:15] LABS: BUN/Creatinine Ratio 15
[2020-02-23 02:29] LABS: Basophils % (Auto) 0.3 % (0.0-1.8); Eosinophils # (Auto) 0.1 K/mm3 (0.0-0.4); Eosinophils % (Auto) 0.6 % (0.0-4.3); Hematocrit 34.3 % (30.3-42.9); Hemoglobin 11.2 gm/dl (10.1-14.3); Lymphocytes # (Auto) 1.3 K/mm3 (1.2-5.4); Lymphocytes % (Auto) 15.7 % (13.4-35.0); Mean Corpuscular HGB Conc 33 % (30-34); Mean Corpuscular Volume 90 fl (79-97); Monocytes # (Auto) 0.6 K/mm3 (0.0-0.8); Monocytes % (Auto) 6.9 % (0.0-7.3); Platelet Count 411 K/mm3 (140-440); Red Cell Distribution Width 15.1 % (13.2-15.2)
[2020-02-23 04:56] VITALS: BP 127/83
== END 2020-02-23 03:08 | disposition home or self-care (01) ==
LOC: ED 21:43
DX: N83.209 Unspecified ovarian cyst, unspecified side (principal); F17.200 Nicotine dependence, unspecified, uncomplicated; Z79.899 Other long term (current) drug therapy; Z91.013 Allergy to seafood; Z88.8 Allergy status to other drugs, medicaments and biological substances
CPT/HCPCS: 36415; 76856; 80048; 81001; 81025; 85025; 96372; 99284; J1885